=== PATIENT | male | born 1955 | race Caucasian/White ===

== ENCOUNTER 2017-08-28 13:57 | Emergency (ER) | payer OTHER ==
[2017-08-28 14:03] VITALS: RESP 18; TEMP 97.1
--- NOTE | 2017-08-28 14:17 | ED ---
General Adult HPI - General Chief complaint: Recheck/Abnormal Lab/Rx Stated complaint: Elevated BP Time Seen by Provider: 08/28/17 14:05 Source: patient, RN notes reviewed, old records reviewed Mode of arrival: ambulatory - History of Present Illness Initial comments: 61 yo male presents for evaluation of elevated blood pressure. Patient has remote history of hypertension. He has not taken medication for this in several years. He does not see a physician on a regular basis regarding his blood pressure. 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 Patient had no complaints. Denied chest pain no shortness of breath. Denies abdominal pain. Denies lower extremity swelling. Denies headache or vision changes. Denies focal weakness. Denies nausea vomiting diarrhea. Denies fever or chills. Patient is uncertain of what medication he was previously taking. - Related Data Previous Rx's Medication Instructions Recorded amLODIPine BESYLATE [Norvasc] 5 mg PO DAILY #30 tablet 08/28/17 Allergies Allergy/AdvReac Type Severity Reaction Status Date / Time No Known Allergies Allergy Verified 08/28/17 14:06 Review of Systems ROS Statement: Those systems with pertinent positive or pertinent negative responses have been documented in the HPI. ROS Other: All systems not noted in ROS Statement are negative. Past Medical History Past Medical History: Hypertension History of Any Multi-Drug Resistant Organisms: None Reported Past Surgical History: No Surgical Hx Reported Past Psychological History: No Psychological Hx Reported Smoking Status: Current every day smoker Past Alcohol Use History: Occasional Past Drug Use History: None Reported General Exam General appearance: alert, in no apparent distress Head exam: Present: atraumatic, normocephalic Eye exam: Present: normal appearance, PERRL ENT exam: Present: normal exam Neck exam: Present: normal inspection. Absent: tenderness, meningismus Respiratory exam: Present: normal lung sounds bilaterally. Absent: respiratory distress, wheezes Cardiovascular Exam: Present: regular rate, normal rhythm GI/Abdominal exam: Present: soft. Absent: distended, tenderness Extremities exam: Present: normal inspection, normal capillary refill. Absent: pedal edema Back exam: Present: normal inspection, full ROM. Absent: tenderness Neurological exam: Present: alert, oriented X3, CN II-XII intact. Absent: motor sensory deficit Psychiatric exam: Present: normal affect, normal mood Skin exam: Present: warm, dry, intact. Absent: cyanosis, diaphoretic Course Vital Signs 08/28/17 08/28/17 14:00 15:10 Temperature 97.1 F L Pulse Rate 88 75 Respiratory 18 18 Rate Blood Pressure 194/127 210/96 O2 Sat by Pulse 98 98 Oximetry EKG Findings - EKG Comments: EKG Findings:: EKG shows normal sinus rhythm with sinus arrhythmia, ventricular rate 78, PA interval 140, castration 84, QTC 43, no signs of ST segment elevation or depression. Medical Decision Making - Medical Decision Making 61-year-old male resents with asymptomatic hypertension. Patient sent from the pipe and test supervisor office. Patient does agree to laboratory testing, this is significant for elevated white blood cell count 16.1, patient has been on steroids over the past several weeks and does have a history of leukocytosis, he does not follow with a physician at this time regarding this lab abnormality. Hemoglobin stable 16.5, creatinine within normal limits. Chest x-ray shows hyperinflation consistent with COPD, cardiomegaly, and bilateral pleural based thickening. No mediastinal widening, no overt heart failure. Patient is given Norvasc in the emergency department. Blood pressure is down trending. He will be started on Norvasc and follow-up with his primary care physician. Diagnosis: asymptomatic hypertension - Lab Data Result diagrams: 08/28/17 14:58 08/28/17 14:58 Lab Results 08/28/17 08/28/17 Range/Units 14:58 14:58 WBC 16.1 H (3.8-10.6) k/uL RBC 5.54 (4.30-5.90) m/uL Hgb 16.5 (13.0-17.5) gm/dL Hct 50.8 (39.0-53.0) % MCV 91.6 (80.0-100.0) fL MCH 29.7 (25.0-35.0) pg MCHC 32.4 (31.0-37.0) g/dL RDW 15.1 (11.5-15.5) % Plt Count 253 (150-450) k/uL Neutrophils % 67 % Lymphocytes % 24 % Monocytes % 4 % Eosinophils % 2 % Basophils % 1 % Neutrophils # 10.8 H (1.3-7.7) k/uL Lymphocytes # 3.9 (1.0-4.8) k/uL Monocytes # 0.7 (0-1.0) k/uL Eosinophils # 0.4 (0-0.7) k/uL Basophils # 0.1 (0-0.2) k/uL Sodium 141 (137-145) mmol/L Potassium 4.4 (3.5-5.1) mmol/L Chloride 103 (98-107) mmol/L Carbon Dioxide 28 (22-30) mmol/L Anion Gap 10 mmol/L BUN 12 (9-20) mg/dL Creatinine 0.91 (0.66-1.25) mg/dL Est GFR (MDRD) Af Amer >60 (>60 ml/min/1.73 sqM) Est GFR (MDRD) Non-Af >60 (>60 ml/min/1.73 sqM) Glucose 93 (74-99) mg/dL Calcium 10.2 (8.4-10.2) mg/dL Magnesium 2.0 (1.6-2.3) mg/dL Total Bilirubin 0.3 (0.2-1.3) mg/dL AST 22 (17-59) U/L ALT 46 (21-72) U/L Alkaline Phosphatase 59 (38-126) U/L Total Protein 7.0 (6.3-8.2) g/dL Albumin 4.4 (3.5-5.0) g/dL Disposition Clinical Impression: Hypertension Disposition: HOME SELF-CARE Condition: Fair Instructions: Hypertension (ED) Prescriptions: amLODIPine BESYLATE [Norvasc] 5 mg PO DAILY #30 tablet Referrals: Ryan Ambrocio DO [Primary Care Provider] - 1-2 days Time of Disposition: 15:33
[2017-08-28 15:10] LABS: Basophils # (A) 0.1 k/uL (0-0.2); Basophils % (A) 1 %; Eosinophils # (A) 0.4 k/uL (0-0.7); Eosinophils % (A) 2 %; HCT 50.8 % (39.0-53.0); HGB 16.5 gm/dL (13.0-17.5); Lymphocytes # (A) 3.9 k/uL (1.0-4.8); Lymphocytes % (A) 24 %; MCH 29.7 pg (25.0-35.0); MCHC 32.4 g/dL (31.0-37.0); MCV 91.6 fL (80.0-100.0); Mean Platelet Volume 8.3; Monocytes # (A) 0.7 k/uL (0-1.0); Monocytes % (A) 4 %; Neutrophils # (A) 10.8 k/uL (1.3-7.7); Neutrophils % (A) 67 %; Platelet Count 253 k/uL (150-450); RBC 5.54 m/uL (4.30-5.90); RDW 15.1 % (11.5-15.5); WBC 16.1 k/uL (3.8-10.6)
[2017-08-28] MEDS ORDERED: amLODIPine 5 MG TAB PO STA (15:10)
--- NOTE | 2017-08-28 15:11 | XR ---
EXAMINATION TYPE: XR chest 2V DATE OF EXAM: 08/28/2017 COMPARISON: 06/03/2011 TECHNIQUE: PA and lateral views submitted. HISTORY: Wrist pain FINDINGS: The lungs are clear and there is no pneumothorax, pleural effusion, or focal pneumonia. Hyperinflat ion suggests COPD and there is cardiomegaly. Bilateral pleural-based thickening with no evidence of o vert failure. IMPRESSION: 1. COPD, cardiomegaly and bilateral pleural-based
[2017-08-28 15:22] LABS: ALT 46 U/L (21-72); AST 22 U/L (17-59); Albumin 4.4 g/dL (3.5-5.0); Alkaline Phosphatase 59 U/L (38-126); Anion Gap 10 mmol/L; Blood Urea Nitrogen 12 mg/dL (9-20); Calcium 10.2 mg/dL (8.4-10.2); Carbon Dioxide 28 mmol/L (22-30); Chloride 103 mmol/L (98-107); Glucose 93 mg/dL (74-99); Potassium 4.4 mmol/L (3.5-5.1); Sodium 141 mmol/L (137-145); Total Bilirubin 0.3 mg/dL (0.2-1.3)
[2017-08-28 15:38] LABS: Partial Thromboplastin Time 24.8 sec (22.0-30.0); Prothrombin Time 10.2 sec (9.0-12.0)
[2017-08-28 15:40] LABS: Creatine Kinase 68 U/L (55-170)
[2017-08-28 15:46] VITALS: BP 206/107; PULSE 71
[2017-08-28 15:52] LABS: Creatine Kinase MB 0.6 ng/mL (0.0-2.4); Troponin I <0.012 ng/mL (0.000-0.034)
== END 2017-08-28 16:03 | disposition home or self-care (01) ==
LOC: EC 13:57
DX: I10 Essential (primary) hypertension (principal); D72.829 Elevated white blood cell count, unspecified; F17.200 Nicotine dependence, unspecified, uncomplicated; Z79.899 Other long term (current) drug therapy
CPT/HCPCS: 36415; 71046; 80053; 82550; 82553; 83735; 83880; 84484; 85025; 85610; 85730; 93005; 99284

== ENCOUNTER 2024-08-04 20:45 | Inpatient (IN) | payer MEDICARE, OTHER ==
--- NOTE | 2024-08-04 21:25 | ED ---
SOB HPI - General Chief Complaint: Shortness of Breath Stated Complaint: ANGEL Time Seen by Provider: 08/04/24 21:09 Source: patient Mode of arrival: wheelchair Limitations: no limitations - History of Present Illness Initial Comments: Patient is a 68-year-old man with history of COPD who presents with complaint of worsening of shortness of breath. The patient states that he was recently started on inhalers but they were only giving small amount of relief. He had been seen in the clinic and in fact had home nebulizer delivered today. The patient states that when he uses the inhaled medication he does briefly feel better but the shortness of breath returns. He is also having bilateral leg edema for months. He has orthopnea. Patient has not noted fever or chills. There is occasional cough with little bit of clear sputum. No change in urina tion or bowel movements. MD Complaint: shortness of breath -: days(s) Severity scale (1-10): 0 Consistency: constant Improves With: bronchodilators, upright position Worsens With: lying flat, exertion Known History Of: COPD Treatments Prior to Arrival: bronchodilator - Related Data Home Oxygen Therapy: No Home Medications Medication Instructions Recorded Confirmed Albuterol Inhaler [Ventolin Hfa 2 puff INHALATION RT-Q4H PRN 08/05/24 08/05/24 Inhaler] Fluticasone/Umeclidin/Vilanter 1 puff INHALATION RT-DAILY 08/05/24 08/05/24 [Trelegy Ellipta 100-62.5-25] Ipratropium-Albuterol Nebulize 3 ml INHALATION RT-QID PRN 08/05/24 08/05/24 [Duoneb 0.5 mg-3 mg/3 ml Soln] Previous Rx's Medication Instructions Recorded Aspirin 81 mg PO DAILY #30 tab 08/09/24 Atorvastatin [Lipitor] 40 mg PO HS #30 tab 08/09/24 Bumetanide [BUMEX] 1 mg PO DAILY #30 tab 08/09/24 Dapagliflozin Propanediol [Farxiga] 10 mg PO DAILY #30 tab 08/09/24 Metoprolol Succinate (ER) [Toprol 50 mg PO DAILY #30 tab 08/09/24 XL] Nitroglycerin Sl Tabs [Nitrostat] 0.4 mg SUBLINGUAL Q5M PRN #10 tab 08/09/24 Rivaroxaban [Xarelto] 2.5 mg PO BID #60 tab 08/09/24 Sacubitril/Valsartan [Entresto 24 2 each PO BID #60 tab 08/09/24 mg-26 mg Tablet] Spironolactone [Aldactone] 25 mg PO DAILY #30 tab 08/09/24 Allergies Allergy/AdvReac Type Severity Reaction Status Date / Time No Known Allergies Allergy Verified 08/05/24 07:47 Review of Systems ROS Statement: Those systems with pertinent positive or pertinent negative responses have been documented in the HPI. ROS Other: All systems not noted in ROS Statement are negative. Constitutional: Denies: fever, chills Respiratory: Reports: cough, dyspnea, wheezes. Denies: hemoptysis Cardiovascular: Reports: orthopnea, edema. Denies: chest pain, palpitations, syncope Gastrointestinal: Denies: abdominal pain, nausea, vomiting, diarrhea Genitourinary: Denies: dysuria, hematuria Musculoskeletal: Denies: back pain Skin: Denies: rash Neurological: Denies: headache, weakness, numbness Past Medical History Past Medical History: Hypertension History of Any Multi-Drug Resistant Organisms: None Reported Past Surgical History: No Surgical Hx Reported Past Psychological History: No Psychological Hx Reported Smoking Status: Current every day smoker Past Alcohol Use History: Occasional Past Drug Use History: None Reported General Exam Limitations: no limitations General appearance: alert, in no apparent distress Head exam: Present: atraumatic, normocephalic Eye exam: Present: normal appearance. Absent: scleral icterus, conjunctival injection ENT exam: Present: normal oropharynx Neck exam: Present: normal inspection Respiratory exam: Present: respiratory distress (Tachypnea), wheezes, rales. Absent: rhonchi, stridor, accessory muscle use, decreased breath sounds Cardiovascular Exam: Present: normal rhythm, tachycardia, gallop GI/Abdominal exam: Present: soft. Absent: distended, tenderness, guarding, rebound, rigid, mass Extremities exam: Present: normal capillary refill, pedal edema. Absent: calf tenderness Back exam: Present: normal inspection. Absent: CVA tenderness (R), CVA tenderness (L) Neurological exam: Present: alert Skin exam: Present: warm, dry, intact, normal color. Absent: rash Course Vital Signs 08/04/24 08/04/24 08/04/24 20:47 21:23 22:27 Temperature 97.9 F 97.6 F 98.4 F Pulse Rate 119 H 105 H 107 H Respiratory 24 22 Rate Blood Pressure 154/85 137/82 131/87 O2 Sat by Pulse 95 97 96 Oximetry 08/05/24 08/05/24 08/05/24 00:30 02:00 05:45 Temperature 97.7 F Pulse Rate 108 H 110 H 109 H Respiratory 25 H 26 H 24 Rate Blood Pressure 122/99 O2 Sat by Pulse 95 96 Oximetry 08/05/24 08/05/24 08/05/24 07:17 08:24 12:55 Temperature Pulse Rate 98 99 Respiratory 24 22 22 Rate Blood Pressure 140/97 142/100 O2 Sat by Pulse 98 98 Oximetry 08/05/24 08/05/24 08/05/24 15:03 18:33 18:44 Temperature Pulse Rate 107 H 102 H 108 H Respiratory 22 Rate Blood Pressure 154/87 O2 Sat by Pulse 97 Oximetry 08/05/24 20:00 Temperature 97.5 F L Pulse Rate 100 Respiratory 18 Rate Blood Pressure 160/97 O2 Sat by Pulse 97 Oximetry Medical Decision Making - Medical Decision Making Patient had chest x-ray that I interpreted as showing density at the right base consistent with right-sided pleural effusion. No pneumothorax. The patient had CT scan of the chest that I interpreted as showing right pleural effusion. Was pt. sent in by a medical professional or institution ([facility], MEDICAL LAB SPECIALIST, urgent care, hospital, or skilled nursing...) When possible be specific @ -[No] Did you speak to anyone other than the patient for history (EMS, parent, family, police, friend...)? What history was obtained from this source @ -[No] Did you review nursing and triage notes (agree or disagree)? Why? @ -[I reviewed and agree with nursing and triage notes] Were old charts reviewed (outside hosp., previous admission, EMS record, old EKG, old radiological studies, urgent care reports/EKG's, skilled nursing records)? Report findings @ -[No old charts were reviewed] Differential Diagnosis (chest pain, altered mental status, abdominal pain women, abdominal pain men, vaginal bleeding, weakness, fever, dyspnea, syncope, headache, dizziness, GI bleed, back pain, seizure, CVA, palpatations, mental health, musculoskeletal)? @ -[Differential Dyspnea: Coronary syndrome, arrhythmia, tamponade, asthma, COPD, pulmonary embolism, pneumonia, pneumothorax, pulmonary effusion, anaphylaxis, diabetic ketoacidosis, flailed chest, pulmonary contusion, diaphragmatic rupture, anemia, neuromu scular, this is not meant to be an all-inclusive list. EKG interpreted by me (3pts min.). @ -[I interpreted as above] X-rays interpreted by me (1pt min.). @ -[I interpreted as above CT interpreted by me (1pt min.). @ -[I interpreted as above U/S interpreted by me (1pt. min.). @ -[None done] What testing was considered but not performed or refused? (CT, X-rays, U/S, labs)? Why? @ -[None] What meds were considered but not given or refused? Why? @ -[None] Did you discuss the management of the patient with other professionals (professionals i.e. , PA, MEDICAL LAB SPECIALIST, lab, RT, psych nurse, social sciences chair, third loader, teacher, giving officer, continuous pillowcase cutter)? Give summary @ -Case discussed with admitting physician and treatment recommendations incorporated Was smoking cessation discussed for >3mins.? @ -[No] Was critical care preformed (if so, how long)? @ -[Yes, 30 minutes Were there social determinants of health that impacted care today? How? (Homelessness, low income, unemployed, alcoholism, drug addiction, transportation, low edu. Level, literacy, decrease access to med. care, longterm, rehab)? @ -[No] Was there de-escalation of care discussed even if they declined (Discuss DNR or withdrawal of care, Hospice)? DNR status @ -[No] What co-morbidities impacted this encounter? (DM, HTN, Smoking, COPD, CAD, Cancer, CVA, ARF, Chemo, Hep., AIDS, mental health diagnosis, sleep apnea, morbid obesity)? @ -[None] Was patient admitted / discharged? Hospital course, mention meds given and route, prescriptions, significant lab abnormalities, going to OR and other pertinent info. @ -[Patient is 68-year-old man presenting with dyspnea. Exam and workup consistent with congestive heart failure. The patient will be admitted to have cardiology consultation as well as further studies. The patient also found to have right pleural effusion and will have pulmonology evaluation for possible thoracentesis. Undiagnosed new problem with uncertain prognosis? @ -[No] Drug Therapy requiring intensive monitoring for toxicity (Heparin, Nitro, Insulin, Cardizem)? @ -[No] Were any procedures done? @ -[No] Diagnosis/symptom? @ -[Acute congestive heart failure Right pleural effusion Anasarca Acute, or Chronic, or Acute on Chronic? @ -[Acute complicated by dyspnea Uncomplicated (without systemic symptoms) or Complicated (systemic symptoms)? @ -[default] Side effects of treatment? @ -[No] Exacerbation, Progression, or Severe Exacerbation? @ -[No] Poses a threat to life or bodily function? How? (Chest pain, [place], [place], pneumonia, PE, COPD, DKA, ARF, appy, cholecystitis, CVA, Diverticulitis, Homicidal, Suicidal, threat to staff... and all critical care pts) @ -[Yes All treatments are based on ideal body weight as in ED triage - Lab Data Result diagrams: 08/09/24 06:41 08/09/24 06:41 Lab Results 08/04/24 08/04/24 08/04/24 Range/Units 21:28 21:28 21:28 WBC 14.4 H (3.8-10.6) k/uL RBC 5.51 (4.30-5.90) m/uL Hgb 16.3 (13.0-17.5) gm/dL Hct 52.8 (39.0-53.0) % MCV 95.7 (80.0-100.0) fL MCH 29.6 (25.0-35.0) pg MCHC 30.9 L (31.0-37.0) g/dL RDW 15.0 (11.5-15.5) % Plt Count 239 (150-450) k/uL MPV 8.1 Neutrophils % 78 % Lymphocytes % 14 % Monocytes % 6 % Eosinophils % 1 % Basophils % 0 % Neutrophils # 11.2 H (1.3-7.7) k/uL Lymphocytes # 2.0 (1.0-4.8) k/uL Monocytes # 0.8 (0-1.0) k/uL Eosinophils # 0.2 (0-0.7) k/uL Basophils # 0.1 (0-0.2) k/uL Hypochromasia Moderate PT 13.0 H (10.0-12.5) sec INR 1.2 H (<1.2) APTT 23.3 (22.0-30.0) sec D-Dimer 1.52 H (<0.60) mg/L FEU Sodium 139 (137-145) mmol/L Potassium 4.9 (3.5-5.1) mmol/L Chloride 107 (98-107) mmol/L Carbon Dioxide 20 L (22-30) mmol/L Anion Gap 12 mmol/L BUN 25 H (9-20) mg/dL Creatinine 1.15 (0.66-1.25) mg/dL Est GFR (CKD-EPI)AfAm 76 (>60 ml/min/1.73 sqM) Est GFR (CKD-EPI)NonAf 66 (>60 ml/min/1.73 sqM) Glucose 114 H (74-99) mg/dL Lactic Ac Sepsis Rflx Plasma Lactic Acid Francisco (0.7-2.0) mmol/L Calcium 10.3 H (8.4-10.2) mg/dL Magnesium 2.1 (1.6-2.3) mg/dL Total Bilirubin 1.3 (0.2-1.3) mg/dL AST 66 H (17-59) U/L ALT 67 H (4-49) U/L Alkaline Phosphatase 83 (38-126) U/L Troponin I (0.000-0.034) ng/mL NT-Pro-B Natriuret Pep 9740 pg/mL Total Protein 6.9 (6.3-8.2) g/dL Albumin 4.5 (3.5-5.0) g/dL Influenza Type A (PCR) (Not Detectd) Influenza Type B (PCR) (Not Detectd) RSV (PCR) (Not Detectd) SARS-CoV-2 (PCR) (Not Detectd) 08/04/24 08/04/24 08/04/24 Range/Units 21:28 21:28 22:08 WBC (3.8-10.6) k/uL RBC (4.30-5.90) m/uL Hgb (13.0-17.5) gm/dL Hct (39.0-53.0) % MCV (80.0-100.0) fL MCH (25.0-35.0) pg MCHC (31.0-37.0) g/dL RDW (11.5-15.5) % Plt Count (150-450) k/uL MPV Neutrophils % % Lymphocytes % % Monocytes % % Eosinophils % % Basophils % % Neutrophils # (1.3-7.7) k/uL Lymphocytes # (1.0-4.8) k/uL Monocytes # (0-1.0) k/uL Eosinophils # (0-0.7) k/uL Basophils # (0-0.2) k/uL Hypochromasia PT (10.0-12.5) sec INR (<1.2) APTT (22.0-30.0) sec D-Dimer (<0.60) mg/L FEU Sodium (137-145) mmol/L Potassium (3.5-5.1) mmol/L Chloride (98-107) mmol/L Carbon Dioxide (22-30) mmol/L Anion Gap mmol/L BUN (9-20) mg/dL Creatinine (0.66-1.25) mg/dL Est GFR (CKD-EPI)AfAm (>60 ml/min/1.73 sqM) Est GFR (CKD-EPI)NonAf (>60 ml/min/1.73 sqM) Glucose (74-99) mg/dL Lactic Ac Sepsis Rflx Y Plasma Lactic Acid Francisco 2.2 H* (0.7-2.0) mmol/L Calcium (8.4-10.2) mg/dL Magnesium (1.6-2.3) mg/dL Total Bilirubin (0.2-1.3) mg/dL AST (17-59) U/L ALT (4-49) U/L Alkaline Phosphatase (38-126) U/L Troponin I 0.077 H* (0.000-0.034) ng/mL NT-Pro-B Natriuret Pep pg/mL Total Protein (6.3-8.2) g/dL Albumin (3.5-5.0) g/dL Influenza Type A (PCR) (Not Detectd) Influenza Type B (PCR) (Not Detectd) RSV (PCR) (Not Detectd) SARS-CoV-2 (PCR) (Not Detectd) 08/04/24 08/05/24 Range/Units 22:14 00:15 WBC (3.8-10.6) k/uL RBC (4.30-5.90) m/uL Hgb (13.0-17.5) gm/dL Hct (39.0-53.0) % MCV (80.0-100.0) fL MCH (25.0-35.0) pg MCHC (31.0-37.0) g/dL RDW (11.5-15.5) % Plt Count (150-450) k/uL MPV Neutrophils % % Lymphocytes % % Monocytes % % Eosinophils % % Basophils % % Neutrophils # (1.3-7.7) k/uL Lymphocytes # (1.0-4.8) k/uL Monocytes # (0-1.0) k/uL Eosinophils # (0-0.7) k/uL Basophils # (0-0.2) k/uL Hypochromasia PT (10.0-12.5) sec INR (<1.2) APTT (22.0-30.0) sec D-Dimer (<0.60) mg/L FEU Sodium (137-145) mmol/L Potassium (3.5-5.1) mmol/L Chloride (98-107) mmol/L Carbon Dioxide (22-30) mmol/L Anion Gap mmol/L BUN (9-20) mg/dL Creatinine (0.66-1.25) mg/dL Est GFR (CKD-EPI)AfAm (>60 ml/min/1.73 sqM) Est GFR (CKD-EPI)NonAf (>60 ml/min/1.73 sqM) Glucose (74-99) mg/dL Lactic Ac Sepsis Rflx Plasma Lactic Acid Francisco 1.8 (0.7-2.0) mmol/L Calcium (8.4-10.2) mg/dL Magnesium (1.6-2.3) mg/dL Total Bilirubin (0.2-1.3) mg/dL AST (17-59) U/L ALT (4-49) U/L Alkaline Phosphatase (38-126) U/L Troponin I (0.000-0.034) ng/mL NT-Pro-B Natriuret Pep pg/mL Total Protein (6.3-8.2) g/dL Albumin (3.5-5.0) g/dL Influenza Type A (PCR) Not Detected (Not Detectd) Influenza Type B (PCR) Not Detected (Not Detectd) RSV (PCR) Not Detected (Not Detectd) SARS-CoV-2 (PCR) Not Detected (Not Detectd) - EKG Data -: EKG Interpreted by Me EKG shows normal: sinus rhythm (With PVCs), axis (Borderline right axis deviation), intervals (Normal), ST-T waves ( lateral T inversions) Rate: tachycardia (Rate 116 bpm) Disposition Clinical Impression: Congestive heart failure, Pleural effusion, right, Anasarca, Elevated troponin Disposition: ADMITTED IP TO THIS [facility] Condition: Serious Is patient prescribed a controlled substance at d/c from ED?: No
[2024-08-04] MEDS: FUROSEMIDE 10 MG/ML 4 ML VIAL IV STA (21:29)
[2024-08-04 21:37] LABS: Basophils # (A) 0.1 k/uL (0-0.2); Basophils % (A) 0 %; Eosinophils # (A) 0.2 k/uL (0-0.7); Eosinophils % (A) 1 %; HCT 52.8 % (39.0-53.0); HGB 16.3 gm/dL (13.0-17.5); Hypochromasia Moderate; Lymphocytes % (A) 14 %; MCH 29.6 pg (25.0-35.0); MCHC 30.9 g/dL (31.0-37.0); MCV 95.7 fL (80.0-100.0); Mean Platelet Volume 8.1; Monocytes # (A) 0.8 k/uL (0-1.0); Monocytes % (A) 6 %; Neutrophils # (A) 11.2 k/uL (1.3-7.7); Neutrophils % (A) 78 %; Platelet Count 239 k/uL (150-450); RBC 5.51 m/uL (4.30-5.90); WBC 14.4 k/uL (3.8-10.6)
[2024-08-04 21:48] LABS: ALT 67 U/L (4-49); AST 66 U/L (17-59); African American GFR (CKD) 76 (>60 ml/min/1.73 sqM); Albumin 4.5 g/dL (3.5-5.0); Alkaline Phosphatase 83 U/L (38-126); Anion Gap 12 mmol/L; Blood Urea Nitrogen 25 mg/dL (9-20); Calcium 10.3 mg/dL (8.4-10.2); Carbon Dioxide 20 mmol/L (22-30); Chloride 107 mmol/L (98-107); Glucose 114 mg/dL (74-99); Magnesium 2.1 mg/dL (1.6-2.3); Non-African American GFR(CKD) 66 (>60 ml/min/1.73 sqM); Potassium 4.9 mmol/L (3.5-5.1); Sodium 139 mmol/L (137-145); Total Bilirubin 1.3 mg/dL (0.2-1.3); Total Protein 6.9 g/dL (6.3-8.2)
--- NOTE | 2024-08-04 21:48 | XR ---
EXAMINATION TYPE: XR chest 2V DATE OF EXAM: 08/04/2024 9:41 PM CLINICAL INDICATION:Male, 68 years old with history of difficulty breathing; [facility] COMPARISON: Chest radiograph 08/28/2017 TECHNIQUE: XR chest 2V Frontal and lateral views of the chest. FINDINGS: Lungs/Pleura: There is blunting of the right costophrenic sulcus. No pneumothorax. Pulmonary vascularity: Unremarkable. Heart/mediastinum: Cardiomediastinal silhouette is unremarkable. Musculoskeletal: No acute osseous pathology. IMPRESSION: 1. Small right pleural effusion. 2. Nonspecific elevation of the right hemidiaphragm [facility] Ronnie Goel, , 08/04/2024 9:46 PM
[2024-08-04 21:55] LABS: NT-Pro-B-Type Natriuretic Pept 9740 pg/mL
[2024-08-04 22:13] LABS: INR 1.2 (<1.2); Partial Thromboplastin Time 23.3 sec (22.0-30.0)
[2024-08-04] MEDS: ASPIRIN 81 MG PO STA (22:19)
[2024-08-04] MEDS: NITROGLYCERIN OINT 1 INCH/GM PACKET TOPICAL STA (22:22)
--- NOTE | 2024-08-04 23:57 | CT ---
EXAM: CT Angiography Chest With Intravenous Contrast CLINICAL HISTORY: dyspnea, possible PE TECHNIQUE: Axial computed tomographic angiography images of the chest with intravenous contrast. CTDI is 32.4 mGy and DLP is 690.3 mGy-cm. This CT exam was performed using one or more of the following dose reduction techniques: automated exposure control, adjustment of the mA and/or kV according to patient size, and/or use of iterative reconstruction technique. MIP reconstructed images were created and reviewed. Coronal and sagittal reformatted images were created and reviewed. 866 images COMPARISON: Chest radiograph from today FINDINGS: Artifacts: Motion artifact decreases the sensitivity of this exam. Pulmonary arteries: No pulmonary embolus in the main and lobar pulmonary arteries. Segmental pulmonary arteries are suboptimally evaluated. Aorta: Small amount of atherosclerotic calcifications. No thoracic aortic aneurysm. Lungs: Small amount of right compressive atelectasis. Suspect mild pulmonary edema. No mass. Pleural space: Large right pleural effusion. Small left pleural effusion. No pneumothorax. Heart: Moderate cardiomegaly. No significant pericardial effusion. No evidence of RV dysfunction. Bones/joints: No acute findings. Soft tissues: Moderate anasarca. Lymph nodes: Unremarkable. No enlarged lymph nodes. Gallbladder and bile ducts: Cholecystectomy clips. Kidneys and ureters: Likely left renal cysts. 2 are hyperdense and exophytic measuring the bowel 40-50 HU and up to 17 mm in maximal diameter, likely hemorrhagic or proteinaceous cysts. Stomach and bowel: Stomach is collapsed, poorly evaluated. Intraperitoneal space: Small ascites. IMPRESSION: 1. No pulmonary embolus in the main and lobar pulmonary arteries. No aortic aneurysm or dissection. 2. Large right pleural effusion. Small left pleural effusion. 3. Moderate anasarca. 4. Small ascites.
[2024-08-05] MEDS: FUROSEMIDE 10 MG/ML 4 ML VIAL IV SCH ×2 (02:08→21:54)
[2024-08-05] MEDS: amLODIPine 5 MG TAB PO SCH (08:23)
[2024-08-05] MEDS ORDERED: IPRATROPIUM-ALBUTEROL 3 ML NEB INHALATION PRN (11:05)
[2024-08-05] MEDS: METOPROLOL SUCCINATE (ER) 25 MG TAB.ER.24H PO SCH (11:57)
[2024-08-05] MEDS: LOSARTAN 25 MG TAB PO SCH (12:52)
--- NOTE | 2024-08-05 14:17 | P.CRDCN ---
History of Present Illness History of present illness: HISTORY OF PRESENT ILLNESS: This is a 68-year-old male with a past medical history significant for peripheral arterial disease and COPD. Patient does not follow with a target developer. We have been asked to see the patient in consultation for CHF. Patient examined at the bedside. Patient presented to the hospital with a chief complaint of increased lower extremity edema. Patient also reports having mild shortness of breath. He denies any chest pain or pressure. Denies any dizziness or lightheadedness. Patient denies any known cardiac history. Patient appears somewhat restless during examination and states he is eager to be discharged home. DIAGNOSTICS: - EKG reveals sinus tachycardia with nonspecific ST-T wave changes. T wave inversions inferiorly. - CTA: negative for pulmonary embolism. Large right pleural effusion. Small left effusion. Generalized anasarca. Coronary artery calcifications. - Laboratory data: WBC 14.4. Hemoglobin 16.3. Platelet count 239. D-dimer 1.52. Sodium 139. Potassium 4.9. BUN 25. Creatinine 1.15. Troponin 0.077. 0.098. 0.093. - Current home cardiac medications include none - No previous echocardiogram, stress test, or cardiac catheterization available in EMR for review REVIEW OF SYSTEMS: At the time of my exam: CONSTITUTIONAL: Denies fever or chills. HEENT: Denies blurred vision, vision changes, or eye pain. Denies hemoptysis CARDIOVASCULAR: Denies chest pain. Denies orthopnea. Denies PND. Denies palpitations RESPIRATORY: Denies shortness of breath. GASTROINTESTINAL: Denies abdominal pain. Denies nausea or vomiting. HEMATOLOGIC: Denies bleeding disorders. GENITOURINARY: Denies any blood in urine. SKIN: Denies pruitis. Denies rash. PHYSICAL EXAM: VITAL SIGNS: Reviewed. GENERAL: Well-developed in no acute distress. HEENT: Head is normocephalic. Pupils are equal, round. Sclerae anicteric. Mucous membranes of the mouth are moist. Neck supple. No JVD or thyromegaly LUNGS: Respirations even and unlabored. Lungs with bibasilar crackles and rhonchi. HEART: Mildly tachycardic. Regular rate and rhythm. S1 and S2 heard. ABDOMEN: Soft. Nondistended. Nontender. EXTREMITIES: Normal range of motion. No clubbing or cyanosis. Peripheral pulses intact-decreased in the legs. Bilateral lower extremity edema NEUROLOGIC: Awake and alert. Oriented x 3. ASSESSMENT: Shortness of breath Acute heart failure, type unknown, echo pending Elevated troponins, likely type II [place] secondary to oxygen supply and demand m ismatch, cannot rule out underlying CAD Large right pleural effusion Small left pleural effusion Mildly elevated LFTs Elevated lactic acid Coronary artery calcifications per CTA History of PAD Obesity, BMI 33.5 History of COPD Nicotine dependence PLAN: Obtain 2D echo to assess cardiac structure and function Obtain lower extremity arterial Doppler due to decreased pulses in the lower extremities Add aspirin 81 mg daily Add atorvastatin 40 mg at night Add losartan 25 mg daily Add metoprolol succinate 25 mg daily Continue IV Lasix 40 mg every 12 hours Daily weights, accurate intake and output, and monitoring of kidney function Eventual addition of Farxiga Recommend cardiac catheterization with Dr. Chacon when patient is medically stable Further recommendations pending patient course Nurse practitioner note has been reviewed by physician. Signing provider agrees with the documented findings, assessment, and plan of care documented by SOCIAL SCIENCES LECTURER as a scribe. Past Medical History Past Medical History: Hypertension History of Any Multi-Drug Resistant Organisms: None Reported Past Surgical History: No Surgical Hx Reported Past Psychological History: No Psychological Hx Reported Smoking Status: Current every day smoker Past Alcohol Use History: Occasional Past Drug Use History: None Reported Medications and Allergies Home Medications Medication Instructions Recorded Confirmed Type Albuterol Inhaler [Ventolin Hfa 2 puff INHALATION RT-Q4H PRN 08/05/24 08/05/24 History Inhaler] Fluticasone/Umeclidin/Vilanter 1 puff INHALATION RT-DAILY 08/05/24 08/05/24 History [Trelegy Ellipta 100-62.5-25] Ipratropium-Albuterol Nebulize 3 ml INHALATION RT-QID PRN 08/05/24 08/05/24 History [Duoneb 0.5 mg-3 mg/3 ml Soln] Allergies Allergy/AdvReac Type Severity Reaction Status Date / Time No Known Allergies Allergy Verified 08/05/24 07:47 Physical Exam Vitals: Vital Signs Temp Pulse Resp BP Pulse Ox 08/05/24 07:17 24 08/05/24 05:45 97.7 F 109 H 24 122/99 96 08/05/24 02:00 110 H 26 H 95 08/05/24 00:30 108 H 25 H 08/04/24 22:27 98.4 F 107 H 131/87 96 08/04/24 21:23 97.6 F 105 H 22 137/82 97 08/04/24 20:47 97.9 F 119 H 24 154/85 95 Intake and Output 08/04/24 08/05/24 08/05/24 22:59 06:59 14:59 Output Total 350 1450 300 Balance -350 -1450 -300 Output: Urine 350 1450 300 Other: Weight 99.79 kg Results 08/04/24 21:28 08/04/24 21:28 Cardiac Enzymes 08/04/24 08/04/24 08/05/24 Range/Units 21:28 21:28 02:01 AST 66 H (17-59) U/L Troponin I 0.077 H* 0.098 H* (0.000-0.034) ng/mL 08/05/24 Range/Units 06:04 AST (17-59) U/L Troponin I 0.093 H* (0.000-0.034) ng/mL Coagulation 08/04/24 Range/Units 21:28 PT 13.0 H (10.0-12.5) sec APTT 23.3 (22.0-30.0) sec CBC 08/04/24 Range/Units 21:28 WBC 14.4 H (3.8-10.6) k/uL RBC 5.51 (4.30-5.90) m/uL Hgb 16.3 (13.0-17.5) gm/dL Hct 52.8 (39.0-53.0) % Plt Count 239 (150-450) k/uL Comprehensive Metabolic Panel 08/04/24 Range/Units 21:28 Sodium 139 (137-145) mmol/L Potassium 4.9 (3.5-5.1) mmol/L Chloride 107 (98-107) mmol/L Carbon Dioxide 20 L (22-30) mmol/L BUN 25 H (9-20) mg/dL Creatinine 1.15 (0.66-1.25) mg/dL Glucose 114 H (74-99) mg/dL Calcium 10.3 H (8.4-10.2) mg/dL AST 66 H (17-59) U/L ALT 67 H (4-49) U/L Alkaline Phosphatase 83 (38-126) U/L Total Protein 6.9 (6.3-8.2) g/dL Albumin 4.5 (3.5-5.0) g/dL Current Medications Generic Name Dose Route Start Last Admin Trade Name Freq PRN Reason Stop Dose Admin Amlodipine Besylate 5 mg 08/05/24 09:00 Amlodipine 5 Mg Tab PO DAILY GRADY Furosemide 40 mg 08/05/24 02:00 08/05/24 02:08 Furosemide 10 Mg/Ml 4 Ml Vial IV Not Given Q12H GRADY Sodium Chloride 10 ml 08/05/24 09:00 Sodium Chloride 0.9% Flush 10 Ml Syringe IV BID GRADY Intake and Output 08/04/24 08/05/24 08/05/24 22:59 06:59 14:59 Output Total 350 1450 300 Balance -350 -1450 -300 Output: Urine 350 1450 300 Other: Weight 99.79 kg 08/04/24 21:28 08/04/24 21:28
[2024-08-05 15:49] LABS: Chol/HDL Ratio 4.82 Ratio; LDL Cholesterol,Calculated 82.8 mg/dL (0.0-131.0); VLDL Calculation 13.94 mg/dL (5.00-40.00)
--- NOTE | 2024-08-05 16:19 | US ---
EXAMINATION TYPE: US arterial LE multi level DATE OF EXAM: 08/05/2024 4:13 PM COMPARISONS: None. CLINICAL INDICATION: Male, 68 years old with history of decreased pulses,hx of PAD; PAD TECHNIQUE: Systolic pressures were taken of the upper and lower extremity arteries with ankle-brachia l indices and toe brachial indices calculated bilaterally. History of: Smoker: Yes Hypertension: No Diabetic: No Hyperlipidemia: Yes TIA/CVA: No Previous Vascular Surgery: No CAD: No [place]: No Vascular Ulcers: No Claudication: Bilat Gangrene: No FINDINGS: Brachial Artery systolic pressure: Right: def due to IV Left: 157 Posterior Tibial artery systolic pressure: Right: 130 Left: 106 Dorsalis Pedis artery systolic pressure: Right: 117 Left: 108 Toe artery systolic pressure: Right: n/a Left: n/a Ankle-Brachial Indices: Right: 0.83 Left: 0.69 (Vessel hardening > 1.4; Normal 0.9 - 1.4, Moderate 0.7 - 0.9, Severe 0.5-0.7) IMPRESSION: Moderate right and severe left peripheral vascular disease by ankle brachial indices [facility], , 08/05/2024 4:17 PM
--- NOTE | 2024-08-05 16:32 | US ---
EXAMINATION TYPE: US chest DATE OF EXAM: 08/05/2024 COMPARISON: NONE CLINICAL INDICATION: Male, 68 years old with history of Pleural effusions; known pleural effusion TECHNIQUE: Grayscale imaging of the chest. Targeted ultrasound of the posterior lower Right FINDINGS: EXAM MEASUREMENTS: Right Pleural Effusion pocket size: 6.5 cm Right skin surface to fluid distance: 5.0 cm Pulmonologists are able to review the images in the patient?s EMR. IMPRESSIONS: Moderate right pleural effusion. [facility], , 08/05/2024 4:29 PM
[2024-08-05] MEDS ORDERED: NON FORMULARY DRUG (Albuterol Inhaler 90 MCG Puff) INHALATION PRN (16:42)
[2024-08-05] MEDS: IPRATROPIUM-ALBUTEROL 3 ML NEB INHALATION SCH (18:32)
[2024-08-05] MEDS ORDERED: BUDESONIDE 0.25 MG/2 ML NEBU INHALATION SCH (20:00)
[2024-08-05] MEDS: ATORVASTATIN 40 MG TAB PO SCH (21:54)
[2024-08-06] MEDS: ACETAMINOPHEN TAB 325 MG TAB PO PRN (00:26)
--- NOTE | 2024-08-06 00:37 | HP ---
HISTORY AND PHYSICAL CHIEF COMPLAINT: Shortness of breath. HISTORY OF PRESENT ILLNESS: This 68-year-old gentleman with a past medical history of COPD, who was recently started on inhalers and nebulizers without any machine, according to him because of increasing shortness of breath. The patient came to [facility]. The patient had features of CHF and right pleural effusion also. There is no history of any fever, rigors, or chills at this time. PAST MEDICAL HISTORY: Reviewed include hypertension. The rest of the history and chart is also reviewed. HOME MEDICATIONS: Reviewed include DuoNeb. Rest of the medications are reviewed. ALLERGIES: None. FAMILY HISTORY: No history of heart disease or strokes in the family. SOCIAL HISTORY: Smoking. REVIEW OF SYSTEMS: A 14-point review of systems is negative except as mentioned earlier. PHYSICAL EXAMINATION: VITAL SIGNS: Pulse is 98, blood pressure 140/90, and respirations 22. HEENT: Conjunctivae normal. NECK: No JVD. CARDIOVASCULAR: S1, S2. RESPIRATIONS: Breath sounds diminished at the bases. Bilateral scattered rhonchi and crackles. ABDOMEN: Soft and nontender. LEGS: No edema. NERVOUS SYSTEM: Nonfocal. LABORATORY DATA: WBC 14.4. Rest of the labs are noted. Lactic acid 2.2. Troponins noted. ASSESSMENT: 1. Shortness of breath, possible multifactorial with chronic obstructive pulmonary disease acute exacerbation and also congestive heart failure with acute exacerbation. 2. Troponin elevated up to 0.098. Possible acute tqi-[id number] elevation myocardial infarction. 3. Right pleural effusion of undetermined origin. 4. Hypertension. 5. Multiple complex medical issues. RECOMMENDATIONS AND DISCUSSION: This is a 68-year-old gentleman, who presented with multiple complex medical issues. We will monitor the patient closely. Continue current medications and continue symptomatic treatment, otherwise. At this time, bronchodilators and diuretics. Cardiology and Pulmonology consultations. Guarded prognosis because of multiple complex medical issues. I would also recommend IV steroids. Further recommendations to follow. See orders for details. Prognosis guarded. MMODL / IJN: [id number] /
[2024-08-06] MEDS: ASPIRIN 81 MG PO SCH (08:14)
[2024-08-06] MEDS: SYMBICORT 80-4.5 MCG INHALER INHALATION SCH (09:43)
[2024-08-06 10:53] LABS: Basophils # (A) 0.1 k/uL (0-0.2); Basophils % (A) 0 %; Eosinophils # (A) 0.1 k/uL (0-0.7); Eosinophils % (A) 1 %; HCT 51.4 % (39.0-53.0); HGB 16.3 gm/dL (13.0-17.5); Hypochromasia Moderate; Lymphocytes # (A) 1.6 k/uL (1.0-4.8); Lymphocytes % (A) 12 %; MCH 30.2 pg (25.0-35.0); MCHC 31.7 g/dL (31.0-37.0); MCV 95.3 fL (80.0-100.0); Mean Platelet Volume 8.3; Monocytes # (A) 0.9 k/uL (0-1.0); Monocytes % (A) 6 %; Neutrophils # (A) 10.9 k/uL (1.3-7.7); Neutrophils % (A) 80 %; Platelet Count 234 k/uL (150-450); RBC 5.39 m/uL (4.30-5.90); RDW 14.8 % (11.5-15.5); WBC 13.6 k/uL (3.8-10.6)
[2024-08-06] MEDS: METOPROLOL SUCCINATE (ER) 25 MG TAB.ER.24H PO STA (10:53)
[2024-08-06 11:06] LABS: Potassium 4.1 mmol/L (3.5-5.1)
[2024-08-06 11:07] LABS: African American GFR (CKD) 70 (>60 ml/min/1.73 sqM); Anion Gap 11 mmol/L; Blood Urea Nitrogen 36 mg/dL (9-20); Calcium 9.7 mg/dL (8.4-10.2); Carbon Dioxide 27 mmol/L (22-30); Chloride 101 mmol/L (98-107); Glucose 99 mg/dL (74-99); Magnesium 2.2 mg/dL (1.6-2.3); Non-African American GFR(CKD) 61 (>60 ml/min/1.73 sqM); Sodium 139 mmol/L (137-145)
--- NOTE | 2024-08-06 12:31 | P.PN ---
Subjective HISTORY OF PRESENT ILLNESS: This is a 68-year-old male with a past medical history significant for peripheral arterial disease and COPD. Patient does not follow with a accountant tax. We have been asked to see the patient in consultation for CHF. Patient examined at the bedside. Patient presented to the hospital with a chief complaint of increased lower extremity edema. Patient also reports having mild shortness of breath. He denies any chest pain or pressure. Denies any dizziness or lightheadedness. Patient denies any known cardiac history. Patient appears somewhat restless during examination and states he is eager to be discharged home. DIAGNOSTICS: - EKG reveals sinus tachycardia with nonspecific ST-T wave changes. T wave inve rsions inferiorly. - CTA: negative for pulmonary embolism. Large right pleural effusion. Small left effusion. Generalized anasarca. Coronary artery calcifications. - Laboratory data: WBC 14.4. Hemoglobin 16.3. Platelet count 239. D-dimer 1.52. Sodium 139. Potassium 4.9. BUN 25. Creatinine 1.15. Troponin 0.077. 0.098. 0.093. - Current home cardiac medications include none - No previous echocardiogram, stress test, or cardiac catheterization available in EMR for review 08/06/2024 Patient examined this morning at the bedside. Patient currently denies any chest pain or pressure. He reports improvement in his shortness of breath. He is still requiring supplemental oxygen. He remains on IV Lasix. 2D echo remains pending. Chest ultrasound reveals moderate right pleural effusion. Lower extremity arterial Doppler reveals moderate right and severe left peripheral vascular disease by MARIELY. PHYSICAL EXAM: VITAL SIGNS: Reviewed. GENERAL: Well-developed in no acute distress. HEENT: Head is normocephalic. Pupils are equal, round. Sclerae anicteric. Mucous membranes of the mouth are moist. Neck supple. No JVD or thyromegaly LUNGS: Respirations even and unlabored. Lungs with bibasilar crackles HEART: Mildly tachycardic. Regular rate and rhythm. S1 and S2 heard. ABDOMEN: Soft. Nondistended. Nontender. EXTREMITIES: Normal range of motion. No clubbing or cyanosis. Peripheral pulses intact-decreased in the legs. Bilateral lower extremity edema NEUROLOGIC: Awake and alert. Oriented x 3. ASSESSMENT: Shortness of breath Acute heart failure, type unknown, echo pending Elevated troponins, likely type II [place] secondary to oxygen supply and demand mismatch, cannot rule out underlying CAD Large right pleural effusion Small left pleural effusion Mildly elevated LFTs Elevated lactic acid Coronary artery calcifications per CTA History of PAD, moderate right and severe left PVD by MARIELY Obesity, BMI 33.5 History of COPD Nicotine dependence PLAN: 2D echo ordered. Await results. Continue current cardiac medications Increase metoprolol succinate to 50 mg daily tachycardia Increase losartan to 50 mg daily due to elevated blood pressures Add Farxiga 10 mg daily Continue IV Lasix 40 mg every 12 hours Daily weights, accurate intake and output, and monitoring of kidney function Recommend cardiac catheterization with Dr. Chacon when patient is medically stable, possibly Thursday if patient is agreeing to staying in the hospital as he is eager to be discharged home Further recommendations pending patient course Nurse practitioner note has been reviewed by physician. Signing provider agrees with the documented findings, assessment, and plan of care documented by MEDICAL OBSERVER as a scribe. Objective - Vital Signs Vital signs: Vital Signs Temp 98.2 F 08/06/24 10:52 Pulse 92 08/06/24 10:52 Resp 19 08/06/24 10:52 BP 143/97 08/06/24 10:52 Pulse Ox 97 08/06/24 10:52 FiO2 Intake & Output 08/05/24 08/06/24 08/06/24 18:59 06:59 18:59 Intake Total 360 788 Output Total 300 Balance -300 360 788 Weight 99.79 kg 99.8 kg Intake: IV 10 Invasive Line 1 10 Oral 360 778 Output: Urine 300 Other: Voiding Method Toilet Toilet # Voids 2 # Bowel Movements 1 - Labs CBC & Chem 7: 08/06/24 09:38 08/06/24 09:38 Labs: Abnormal Lab Results - Last 24 Hours (Table) 08/05/24 08/05/24 08/06/24 Range/Units 06:04 11:58 09:38 WBC (3.8-10.6) k/uL Neutrophils # (1.3-7.7) k/uL BUN 36 H (9-20) mg/dL Hemoglobin A1c 6.1 H (<=6.0) % HDL Cholesterol 25.30 L (40.00-60.00) mg/dL 08/06/24 Range/Units 09:38 WBC 13.6 H (3.8-10.6) k/uL Neutrophils # 10.9 H (1.3-7.7) k/uL BUN (9-20) mg/dL Hemoglobin A1c (<=6.0) % HDL Cholesterol (40.00-60.00) mg/dL
[2024-08-06] MEDS: LOSARTAN 25 MG TAB PO STA (13:21)
--- NOTE | 2024-08-06 15:07 | CA ---
Transthoracic Echo Report Name: Clement Barrera Age: 68 Gender: M : 1955 Exam Date: 08/06/2024 11:59 Exam Location: [facility] Ht (in): 68 Wt (lb): 220 Ordering Physician: Leif Rhoades MD Attending/Referring Phys: Screener Perfumer Sudha Oliva RDCS Procedure CPT: Indications: Heart failure Cardiac Hx: Technical Quality: Technically difficult study Contrast 1: Definity Total Dose (mL): 2 Contrast 2: Total Dose (mL): MEASUREMENTS (Male / Female) Normal Values 2D ECHO LV Diastolic Diameter PLAX 5.6 cm 4.2 - 5.9 / 3.9 - 5.3 cm LV Systolic Diameter PLAX 4.8 cm IVS Diastolic Thickness 1.5 cm 0.6 - 1.0 / 0.6 - 0.9 cm LVPW Diastolic Thickness 1.4 cm 0.6 - 1.0 / 0.6 - 0.9 cm LV Relative Wall Thickness 0.5 RV Internal Dim ED PLAX 3.8 cm LVOT Diameter 2.5 cm LA Systolic Diameter LX 4.8 cm 3.0 - 4.0 / 2.7 - 3.8 cm LV Diastolic Volume MOD BP 144.2 cm??? 67 - 155 / 56 - 104 cm??? LV Systolic Volume MOD BP 112.4 cm??? - 58 / 19 - 49 cm??? LV Ejection Fraction MOD BP 22.1 % >= 55 % LV Cardiac Index MOD BP 1588.5 cm???/min???m??? LV Diastolic Volume MOD 4C 130.4 cm??? LV Systolic Volume MOD 4C 101.9 cm??? LV Ejection Fraction MOD 4C 21.9 % LV Cardiac Index MOD 4C 1424.3 cm???/min???m??? LV Diastolic Length 4C 7.6 cm LV Systolic Length 4C 7.5 cm LV Diastolic Volume MOD 2C 167.4 cm??? LV Systolic Volume MOD 2C 122.5 cm??? LV Ejection Fraction MOD 2C 26.8 % LV Cardiac Index MOD 2C 2239.8 cm???/min???m??? LV Diastolic Length 2C 8.5 cm LV Systolic Length 2C 7.6 cm LA Volume 140.3 cm??? 18 - 58 / 22 - 52 cm??? LA Volume Index 63.1 cm???/m??? 16 - 28 cm???/m??? M-MODE Aortic Root Diameter MM 3.8 cm DOPPLER AV Peak Velocity 238.0 cm/s AV Peak Gradient 22.7 mmHg AV Mean Velocity 155.1 cm/s AV Mean Gradient 11.3 mmHg AV Velocity Time Integral 41.4 cm LVOT Peak Velocity 72.2 cm/s LVOT Peak Gradient 2.1 mmHg LVOT Velocity Time Integral 11.5 cm LVOT Stroke Volume 56.6 cm??? LVOT Stroke Volume Index 26.6 ml/m??? LVOT Cardiac Index 2828.4 cm???/min???m??? AV Area Cont Eq vti 1.4 cm??? AV Area Cont Eq pk 1.5 cm??? MV Area PHT 5.2 cm??? MV Deceleration Time 174.1 ms TR Peak Velocity 282.4 cm/s TR Peak Gradient 31.9 mmHg Right Ventricular Systolic Press 45.4 mmHg FINDINGS Left Ventricle Left ventricular ejection fraction is estimated at 20-25 %. Left ventricular cavity size normal. Moderately increased septal wall thickness. Severely increased left ventricular systolic volume. Severely decreased left ventricular ejection fraction. Right Ventricle Moderate right ventricular dilatation. Moderate pulmonary hypertension. Right Atrium No right atrial thrombus or mass seen. Left Atrium Moderately increased left atrial diameter. Severely increased left atrial volume. Moderately increased left atrial area. Mitral Valve Structurally normal mitral valve. No mitral stenosis, regurgitation or prolapse. Aortic Valve Trileaflet aortic valve. Aortic valve sclerosis. Mild aortic stenosis with a peak gradient of 23 mmHg and a mean gradient of 11 mmHg. Tricuspid Valve Structurally normal tricuspid valve. Mild tricuspid regurgitation. Pulmonic Valve Structurally normal pulmonic valve. Trace pulmonic regurgitation. Pericardium No pericardial effusion. Aorta Mild aortic dilatation at the level of the sinuses of valsalva 38 mm CONCLUSIONS Severe LV systolic dysfunction with an ejection fraction of 25% Moderate pulmonary hypertension Mild aortic stenosis Previewed by: Dr. Truman Morse MD (Electronically Signed) Final Date: 06 August 2024 15:06
--- NOTE | 2024-08-06 15:55 | P.CNPUL ---
History of Present Illness Consult date: 08/06/24 Requesting physician: Lupe Hooks Reason for consult: pleural effusion Chief complaint: Shortness of breath and fluid retention with bilateral lower extremity swel History of present illness: This is a 68-year-old white male admitted yesterday with mostly few days history of increased shortness of breath, increased swelling in his lower extremities/bipedal edema, he had no chest pain, no fever, no chills, no hemoptysis. Upon workup in the ER, patient was found to have moderate right- sided pleural effusion and small pleural effusion generalized anasarca coronary artery calcification, and no evidence of pulmonary embolism or pneumonia. Patient was admitted, and this consult was initiated. I reviewed the ultrasound of the chest, the marking on the chest has been removed for some reason patient has a 6.5 cm pocket/pleural effusion, however the patient is feeling significantly better with diuretics, he is breathing better, the swelling in his lower extremities is significantly improved, even the swelling in his abdominal cavity seems to be better according to the patient. Considering this, I see no plans to recommend immediate thoracentesis, patient is obviously responding to d iuretics, and will continue the sameCBC today is relatively normal electrolytes are normal BUN is 36 creatinine 1.22 Review of Systems CONSTITUTIONAL: Denies fever chills or weight loss patient has significant weight gain recently HEENT: Denies blurred vision, vision changes, or eye pain. Denies hemoptysis CARDIOVASCULAR: No chest pain but he does have significant fluid retention and buildup of edema in both of his lower extremities RESPIRATORY: Mild shortness of breath GASTROINTESTINAL: Denies abdominal pain. Denies nausea or vomiting. HEMATOLOGIC: Denies bleeding disorders. GENITOURINARY: No hematuria dysuria frequency urgency SKIN: Denies any rash Past Medical History Past Medical History: COPD, Hypertension, Respiratory Disorder Additional Past Medical History / Comment(s): PAD,PVD History of Any Multi-Drug Resistant Organisms: None Reported Past Surgical History: No Surgical Hx Reported, Orthopedic Surgery Additional Past Surgical History / Comment(s): pin right shoulder, gall stones Past Anesthesia/Blood Transfusion Reactions: No Reported Reaction Past Psychological History: No Psychological Hx Reported Smoking Status: Current every day smoker Past Alcohol Use History: Occasional Past Drug Use History: None Reported Medications and Allergies Home Medications Medication Instructions Recorded Confirmed Type Albuterol Inhaler [Ventolin Hfa 2 puff INHALATION RT-Q4H PRN 08/05/24 08/05/24 History Inhaler] Fluticasone/Umeclidin/Vilanter 1 puff INHALATION RT-DAILY 08/05/24 08/05/24 History [Dimitrylesaúl Ellipta 100-62.5-25] Ipratropium-Albuterol Nebulize 3 ml INHALATION RT-QID PRN 08/05/24 08/05/24 History [Duoneb 0.5 mg-3 mg/3 ml Soln] Allergies Allergy/AdvReac Type Severity Reaction Status Date / Time No Known Allergies Allergy Verified 08/05/24 07:47 Physical Exam Vitals: Vital Signs Temp Pulse Pulse Resp BP BP Pulse Ox 08/06/24 15:25 97.4 F L 62 19 128/81 98 08/06/24 13:21 92 19 08/06/24 10:52 98.2 F 92 19 143/97 97 08/06/24 08:11 103 H 19 08/06/24 08:10 98.3 F 103 H 19 170/82 96 08/06/24 04:00 97.9 F 103 H 20 130/88 95 08/06/24 02:00 20 08/06/24 00:34 98.6 F 60 20 125/80 98 08/05/24 21:00 22 08/05/24 20:51 98.5 F 100 21 139/92 95 08/05/24 20:00 97.5 F L 100 18 160/97 97 08/05/24 18:44 108 H 08/05/24 18:33 102 H Intake and Output 08/06/24 08/06/24 08/06/24 06:59 14:59 22:59 Intake Total 798 Output Total 400 Balance 398 Intake: IV 20 Invasive Line 1 20 Oral 778 Output: Urine 400 Other: Voiding Method Toilet Toilet Urinal # Voids 2 # Bowel Movements 1 Weight 99.8 kg GENERAL: Revealed a 68-year-old white male in no distress, On 3 L nasal cannula with O2 saturation of 98% HEENT: Atraumatic, normocephalic, PERRLA, EOMI, nonicteric no neck masses no JVD no stridor moist mucous membranes LUNGS: Diminished breath sounds at the right base with slight dullness, no crackles rhonchi or wheezes HEART: Normal S1-S2, no S3 Or gallop 2/6 systolic murmur throughout the precordium ABDOMEN: Soft nontender no MAG no rebound or guarding EXTREMITIES: 2+ bipedal edema NEUROLOGIC: Awake and alert. Oriented x 3. Psychiatric: Normal mood affect abnormality status examination Skin: No rash Results - Laboratory Findings CBC and BMP: 08/06/24 09:38 08/06/24 09:38 PT/INR, D-dimer PT 13.0 sec (10.0-12.5) H 08/04/24 21:28 INR 1.2 (<1.2) H 08/04/24 21: D-Dimer 1.52 mg/L FEU (<0.60) H 08/04/24 21:28 Abnormal lab findings: Abnormal Labs 08/04/24 08/04/24 08/04/24 21:28 21:28 21:28 WBC 14.4 H MCHC 30.9 L Neutrophils # 11.2 H PT 13.0 H INR 1.2 H D-Dimer 1.52 H Carbon Dioxide 20 L BUN 25 H Glucose 114 H Hemoglobin A1c Plasma Lactic Acid Francisco Calcium 10.3 H AST 66 H ALT 67 H Troponin I HDL Cholesterol 08/04/24 08/04/24 08/05/24 21:28 21:28 02:01 WBC MCHC Neutrophils # PT INR D-Dimer Carbon Dioxide BUN Glucose Hemoglobin A1c Plasma Lactic Acid Francisco 2.2 H* Calcium AST ALT Troponin I 0.077 H* 0.098 H* HDL Cholesterol 08/05/24 08/05/24 08/05/24 06:04 06:04 11:58 WBC MCHC Neutrophils # PT INR D-Dimer Carbon Dioxide BUN Glucose Hemoglobin A1c 6.1 H Plasma Lactic Acid Francisco Calcium AST ALT Troponin I 0.093 H* HDL Cholesterol 25.30 L 08/06/24 08/06/24 09:38 09:38 WBC 13.6 H MCHC Neutrophils # 10.9 H PT INR D-Dimer Carbon Dioxide BUN 36 H Glucose Hemoglobin A1c Plasma Lactic Acid Francisco Calcium AST ALT Troponin I HDL Cholesterol - Diagnostic Findings Chest x-ray: image reviewed CT scan - chest: image reviewed (As noted in HPI) Assessment and Plan Assessment: Impression: Acute on chronic systolic congestive heart failure ejection fraction of 25% Bilateral pleural effusions, secondary to above Anasarca secondary to above Moderate pulmonary hypertension History of underlying COPD severity of which is not clear at this point. History of mild aortic stenosis History of underlying coronary artery disease History of peripheral vessel occlusive disease Tobacco dependence syndrome Recommendation: Continue diuretics for now patient is on Lasix 40 mg IV push twice daily, obviously the patient is improving with diuresis, and will hold on thoracentesis for now. Continue cardiac medications as ordered by cardiology including metoprolol and losartan farxiga was added Continue to monitor and strictly I's and O's Continue to monitor daily weights Continue to monitor renal profile Cardiology is considering cardiac catheterization on this patient possibly Thursday No emergent need to perform thoracentesis, patient would likely improve with diuresis only. Resume his home bronchodilators for COPD Will continue to follow Time with Patient: Greater than 30
[2024-08-07 08:30] LABS: Basophils % (A) 0 %; Eosinophils # (A) 0.2 k/uL (0-0.7); Eosinophils % (A) 1 %; HCT 51.6 % (39.0-53.0); HGB 16.3 gm/dL (13.0-17.5); Hypochromasia Moderate; Lymphocytes # (A) 1.8 k/uL (1.0-4.8); Lymphocytes % (A) 12 %; MCH 30.3 pg (25.0-35.0); MCHC 31.6 g/dL (31.0-37.0); MCV 95.8 fL (80.0-100.0); Mean Platelet Volume 7.9; Monocytes # (A) 0.8 k/uL (0-1.0); Monocytes % (A) 6 %; Neutrophils # (A) 11.3 k/uL (1.3-7.7); Neutrophils % (A) 80 %; Platelet Count 216 k/uL (150-450); RBC 5.38 m/uL (4.30-5.90); RDW 14.8 % (11.5-15.5); WBC 14.2 k/uL (3.8-10.6)
[2024-08-07 08:43] LABS: African American GFR (CKD) 79 (>60 ml/min/1.73 sqM); Anion Gap 10 mmol/L; Blood Urea Nitrogen 34 mg/dL (9-20); Calcium 9.9 mg/dL (8.4-10.2); Carbon Dioxide 30 mmol/L (22-30); Chloride 101 mmol/L (98-107); Glucose 107 mg/dL (74-99); Magnesium 2.3 mg/dL (1.6-2.3); Non-African American GFR(CKD) 68 (>60 ml/min/1.73 sqM); Potassium 4.2 mmol/L (3.5-5.1); Sodium 141 mmol/L (137-145)
[2024-08-07] MEDS: LOSARTAN 50 MG TAB PO SCH (08:47)
[2024-08-07] MEDS: DAPAGLIFLOZIN PROPANEDIOL 10 MG TABLET PO SCH (08:47)
[2024-08-07] MEDS: METOPROLOL SUCCINATE (ER) 50 MG TAB.ER.24H PO SCH (08:47)
[2024-08-07] MEDS ORDERED: ALPRAZolam 0.25 MG TAB PO PRN (13:19)
[2024-08-07] MEDS ORDERED: ALPRAZolam 0.5 MG TAB PO PRN (13:19)
[2024-08-07] MEDS ORDERED: NITROGLYCERIN SL TABS 0.4 MG TAB SUBLINGUAL PRN (13:19)
--- NOTE | 2024-08-07 13:22 | P.PN ---
Subjective HISTORY OF PRESENT ILLNESS: This is a 68-year-old male with a past medical history significant for peripheral arterial disease and COPD. Patient does not follow with a education consultant. We have been asked to see the patient in consultation for CHF. Patient examined at the bedside. Patient presented to the hospital with a chief complaint of increased lower extremity edema. Patient also reports having mild shortness of breath. He denies any chest pain or pressure. Denies any dizziness or lightheadedness. Patient denies any known cardiac history. Patient appears somewhat restless during examination and states he is eager to be discharged home. DIAGNOSTICS: - EKG reveals sinus tachycardia with nonspecific ST-T wave changes. T wave inve rsions inferiorly. - CTA: negative for pulmonary embolism. Large right pleural effusion. Small left effusion. Generalized anasarca. Coronary artery calcifications. - Laboratory data: WBC 14.4. Hemoglobin 16.3. Platelet count 239. D-dimer 1.52. Sodium 139. Potassium 4.9. BUN 25. Creatinine 1.15. Troponin 0.077. 0.098. 0.093. - Current home cardiac medications include none - No previous echocardiogram, stress test, or cardiac catheterization available in EMR for review 08/06/2024 Patient examined this morning at the bedside. Patient currently denies any chest pain or pressure. He reports improvement in his shortness of breath. He is still requiring supplemental oxygen. He remains on IV Lasix. 2D echo remains pending. Chest ultrasound reveals moderate right pleural effusion. Lower extremity arterial Doppler reveals moderate right and severe left peripheral vascular disease by MARIELY. 08/07/2024 Patient examined this morning the bedside. Patient currently denies chest pain or pressure. He denies shortness of breath. However he remains on nasal cannula to maintain oxygen saturations greater than 92%. He remains on IV Lasix. Echocardiogram completed revealing ejection fraction 2025%, moderate pulm hypertension, and mild aortic stenosis PHYSICAL EXAM: VITAL SIGNS: Reviewed. GENERAL: Well-developed in no acute distress. HEENT: Head is normocephalic. Pupils are equal, round. Sclerae anicteric. Mucous membranes of the mouth are moist. Neck supple. No JVD or thyromegaly LUNGS: Respirations even and unlabored. Lungs diminished bilaterally HEART: Regular rate and rhythm. S1 and S2 heard. ABDOMEN: Soft. Nondistended. Nontender. EXTREMITIES: Normal range of motion. No clubbing or cyanosis. Peripheral pulses intact-decreased in the legs. Bilateral lower extremity edema NEUROLOGIC: Awake and alert. Oriented x 3. ASSESSMENT: Shortness of breath Acute heart failure with reduced EF, 20 to 25% New onset cardiomyopathy, ischemic versus nonischemic Elevated troponins, likely type II IN secondary to oxygen supply and demand mismatch, cannot rule out underlying CAD Large right pleural effusion Small left pleural effusion Mildly elevated LFTs Elevated lactic acid Coronary artery calcifications per CTA History of PAD, moderate right and severe left PVD by MARIELY Obesity, BMI 33.5 History of COPD Nicotine dependence PLAN: Continue current cardiac medications Continue IV Lasix 40 mg every 12 hours Daily weights, accurate intake and output, and monitoring of kidney function Add Aldactone 25 mg daily N.p.o. at midnight Patient to undergo cardiac catheterization tomorrow with Dr. Chacon Further recommendations pending patient course Nurse practitioner note has been reviewed by physician. Signing provider agrees with the documented findings, assessment, and plan of care documented by [employer] as a scribe. Objective - Vital Signs Vital signs: Vital Signs Temp 97.9 F 08/07/24 11:23 Pulse 84 08/07/24 11:23 Resp 19 08/07/24 11:23 BP 124/89 08/07/24 11:23 Pulse Ox 99 08/07/24 11:23 FiO2 Intake & Output 08/06/24 08/07/24 08/07/24 18:59 06:59 18:59 Intake Total 918 20 790 Output Total 400 1005 400 Balance 518 -985 390 Weight 100.2 kg Intake: IV 20 20 10 Invasive Line 1 20 20 10 Oral 898 780 Output: Urine 400 1005 400 Other: Voiding Method Toilet Toilet Toilet Urinal Urinal Urinal # Voids 2 # Bowel Movements 1 - Labs CBC & Chem 7: 08/07/24 07:49 08/07/24 07:49 Labs: Abnormal Lab Results - Last 24 Hours (Table) 08/07/24 08/07/24 Range/Units 07:49 07:49 WBC 14.2 H (3.8-10.6) k/uL Neutrophils # 11.3 H (1.3-7.7) k/uL BUN 34 H (9-20) mg/dL Glucose 107 H (74-99) mg/dL
--- NOTE | 2024-08-07 14:48 | P.PN ---
Subjective Progress Note Date: 08/07/24 Principal diagnosis: Acute on chronic systolic congestive heart failure and bilateral pleural effusions This is a 68-year-old white male admitted yesterday with mostly few days history of increased shortness of breath, increased swelling in his lower extremities/bipedal edema, he had no chest pain, no fever, no chills, no hemoptysis. Upon workup in the ER, patient was found to have moderate right- sided pleural effusion and small pleural effusion generalized anasarca coronary artery calcification, and no evidence of pulmonary embolism or pneumonia. Patient was admitted, and this consult was initiated. I reviewed the ultrasound of the chest, the marking on the chest has been removed for some reason patient has a 6.5 cm pocket/pleural effusion, however the patient is feeling significantly better with diuretics, he is breathing better, the swelling in his lower extremities is significantly improved, even the swelling in his abdominal cavity seems to be better according to the patient. Considering this, I see no plans to recommend immediate thoracentesis, patient is obviously responding to diuretics, and will continue the sameCBC today is relatively normal electrolytes are normal BUN is 36 creatinine 1.22 Patient was seen today on 08/07/2024, patient seems to be doing better today, breathing easier, denies any chest pain cough wheezing or shortness of breath. Patient is on nasal cannula, O2 saturation is 92%, remains on Lasix, his echocardiogram showed severe LV dysfunction with ejection fraction of 20 to 25% and there is evidence of moderate pulmonary hypertension. Ultrasound of the chest showed a 6.5 cm pocket however the patient is doing well clinically, improving to diuretics, I do not believe the patient will need thoracentesis. However if his pleural effusion persists or gets any worse, we could consider to address the issue of thoracentesis. At this point in time I do not see a need for thoracentesis considering the clinical improvement and considering this is a clear-cut presentation of congestive heart failure. WBC count is 14.2 hemoglobin 16.3 basic metabolic profile is normal renal profile is normal with BUN of 34 creatinine 1.11 Objective - Vital Signs Vital signs: Vital Signs Temp 97.9 F 08/07/24 11:23 Pulse 84 08/07/24 13:38 Resp 19 08/07/24 13:38 BP 124/89 08/07/24 11:23 Pulse Ox 99 08/07/24 11:23 FiO2 Intake & Output 12/28/24 12/29/24 12/29/24 18:59 06:59 18:59 Intake Total 763 20 8895 Output Total 400 1005 400 Balance 518 -985 640 Weight 100.2 kg Intake: IV 20 20 20 Invasive Line 1 20 20 20 Oral [id number] [id number] Output: Urine 400 1005 400 Other: Voiding Method Toilet Toilet Toilet Urinal Urinal Urinal # Voids 2 # Bowel Movements 1 - Exam GENERAL: Revealed a 68-year-old white male in no distress, On 3 L nasal cannula with O2 saturation of 99% HEENT: Atraumatic, normocephalic, PERRLA, EOMI, nonicteric no neck masses no JVD no stridor moist mucous membranes LUNGS: Diminished breath sounds at the right base with slight dullness, no crackles rhonchi or wheezes HEART: Normal S1-S2, no S3 Or gallop 2/6 systolic murmur throughout the precordium ABDOMEN: Soft nontender no MAG no rebound or guarding EXTREMITIES: 1+ bipedal edema NEUROLOGIC: Awake and alert. Oriented x 3. Psychiatric: Normal mood affect abnormality status examination Skin: No rash - Labs CBC & Chem 7: 08/07/24 07:49 08/07/24 07:49 Labs: Abnormal Lab Results - Last 24 Hours (Table) 08/07/24 08/07/24 Range/Units 07:49 07:49 WBC 14.2 H (3.8-10.6) k/uL Neutrophils # 11.3 H (1.3-7.7) k/uL BUN 34 H (9-20) mg/dL Glucose 107 H (74-99) mg/dL Assessment and Plan Assessment: Impression: Acute on chronic systolic congestive heart failure ejection fraction of 20 to 25% Bilateral pleural effusions, secondary to above Anasarca secondary to above Moderate pulmonary hypertension History of underlying COPD severity of which is not clear at this point. History of mild aortic stenosis History of underlying coronary artery disease History of peripheral vessel occlusive disease Tobacco dependence syndrome Recommendation: Continue diuretics for now patient is on Lasix 40 mg IV push twice daily, and A ldactone 25 mg daily improving hence I have no plans to recommend thoracentesis at this point Continue metoprolol and losartan farxiga Continue to monitor and strictly I's and O's Continue to monitor daily weights Continue to monitor renal profile Cardiology is considering cardiac catheterization on this patient possibly Thursday No emergent need to perform thoracentesis, may not need wound considering the clinical improvement Continue bronchodilators for COPD Will continue to follow Time with Patient: Less than 30
[2024-08-07] MEDS: SPIRONOLACTONE 25 MG TAB PO SCH (16:22)
[2024-08-07] MEDS: SODIUM CHLORIDE 0.9% 1,000 ML in EMPTY BAG 1 BAG IV SCH (23:52)
[2024-08-08] MEDS: ASPIRIN 325 MG TAB PO ONE (05:39)
[2024-08-08] MEDS: ATORVASTATIN 80 MG TAB PO ONE (05:39)
[2024-08-08] MEDS ORDERED: HEPARIN SODIUM,PORCINE (1 ML) 2,500 UNIT in SODIUM CHLORIDE 0.9% 250 ML IRRIGATION PRN (07:00)
[2024-08-08] MEDS ORDERED: HEPARIN SODIUM,PORCINE 10,000 UNIT in SODIUM CHLORIDE 0.9% 1,000 ML IRRIGATION PRN (07:00)
--- NOTE | 2024-08-08 09:06 | XR ---
EXAMINATION TYPE: XR chest 1V portable DATE OF EXAM: 08/08/2024 7:23 AM COMPARISON: 08/04/2024 CLINICAL INDICATION: Male, 68 years old with history of Pleural effusion, TECHNIQUE: XR chest 1V portable view(s) obtained. FINDINGS: The heart size is mildly prominent. The pulmonary vasculature is mildly prominent. There is increasing diffuse increased lung markings present bilaterally. Small right pleural effusion is present IMPRESSION: 1. Clinical correlation for congestive heart failure. Findings are slightly worsened over the interva l. Follow-up is recommended. [facility], , 08/08/2024 9:04 AM
--- NOTE | 2024-08-08 09:07 | PN ---
PROGRESS NOTE DATE OF SERVICE: 08/06/2024 SUBJECTIVE: A 68-year-old gentleman, admitted with shortness of breath, possibly combination of COPD and CHF, acute exacerbation, also had elevated troponin also. The patient had a chest ultrasound, showed some right pleural effusion, multiple consults following the patient closely. PAST MEDICAL HISTORY: Reviewed. REVIEW OF SYSTEMS: A 14-point review of systems is negative except as mentioned earlier. CURRENT MEDICATIONS: Reviewed. PHYSICAL EXAMINATION: VITAL SIGNS: Pulse is 92, blood pressure 140/90, respirations 19. HEENT: Conjunctivae normal. NECK: No JVD. CARDIOVASCULAR: S1, S2. RESPIRATIONS: Breath sounds diminished at the bases. Scattered rhonchi and crackles. ABDOMEN: Soft. NERVOUS SYSTEM: Nonfocal. LABORATORY DATA: Reviewed. ASSESSMENT: 1. Shortness of breath, possibly multifactorial. 2. Congestive heart failure, acute exacerbation. 3. Chronic obstructive pulmonary disease, acute exacerbation. 4. Right pleural effusion. 5. Troponin elevated up to 0.098, possible acute top-KB-fyplnoh elevation myocardial infarction. 6. Hypertension. 7. Multiple complex medical issues. RECOMMENDATIONS: To continue current management and continue symptomatic treatment at this time. Continue with cautious diuretics. Repeat labs. I would also recommend closely follow with Pulmonary and continue with bronchodilators. Repeat labs. Guarded prognosis. Further recommendations to follow. MMODL / IJN: [id number] /
[2024-08-08 09:20] LABS: Basophils # (A) 0.1 k/uL (0-0.2); Basophils % (A) 0 %; Eosinophils # (A) 0.2 k/uL (0-0.7); Eosinophils % (A) 2 %; HCT 50.5 % (39.0-53.0); HGB 15.9 gm/dL (13.0-17.5); Hypochromasia Slight; Lymphocytes # (A) 1.6 k/uL (1.0-4.8); Lymphocytes % (A) 12 %; MCH 29.9 pg (25.0-35.0); MCHC 31.4 g/dL (31.0-37.0); MCV 95.3 fL (80.0-100.0); Mean Platelet Volume 8.1; Monocytes # (A) 0.9 k/uL (0-1.0); Monocytes % (A) 7 %; Neutrophils # (A) 10.7 k/uL (1.3-7.7); Neutrophils % (A) 79 %; Platelet Count 215 k/uL (150-450); WBC 13.6 k/uL (3.8-10.6)
[2024-08-08 09:35] LABS: African American GFR (CKD) 73 (>60 ml/min/1.73 sqM); Anion Gap 8 mmol/L; Blood Urea Nitrogen 30 mg/dL (9-20); Calcium 9.8 mg/dL (8.4-10.2); Carbon Dioxide 30 mmol/L (22-30); Chloride 101 mmol/L (98-107); Glucose 105 mg/dL (74-99); Magnesium 2.2 mg/dL (1.6-2.3); Non-African American GFR(CKD) 63 (>60 ml/min/1.73 sqM); Potassium 3.9 mmol/L (3.5-5.1); Sodium 139 mmol/L (137-145)
[2024-08-08 09:39] VITALS: RESP 18
[2024-08-08] MEDS: IV FLUID CONTINUATION 900 ML IV ONE (11:49)
[2024-08-08] MEDS: HEPARIN SODIUM,PORCINE (1 ML) 2,500 UNIT in SODIUM CHLORIDE 0.9% 250 ML IRRIGATION ONE (11:50)
[2024-08-08] MEDS: HEPARIN SODIUM,PORCINE 10,000 UNIT in SODIUM CHLORIDE 0.9% 1,000 ML IRRIGATION ONE (11:50)
[2024-08-08] MEDS: MIDAZOLAM 2 MG/2 ML VIAL IVP ONE (12:03)
[2024-08-08] MEDS: fentaNYL (PF) 50 MCG/ML 2 ML AMP IVP ONE (12:06)
[2024-08-08] MEDS: LIDOCAINE 1% INJ 10MG/ML (20 ML MDV) SQ ONE (12:06)
[2024-08-08] MEDS: VERAPAMIL SYRINGE (5 MG/10 ML) INTRAARTER ONE (12:07)
[2024-08-08] MEDS: IOPAMIDOL-370 100ML BTL INJ ONE (12:24)
--- NOTE | 2024-08-08 12:29 | PN ---
PROGRESS NOTE DATE OF SERVICE: 08/07/2024 SUBJECTIVE: This is a 68-year-old gentleman admitted with CHF acute exacerbation, closely monitored. The patient also had a right pleural effusion. The chest ultrasound showed 6.5 cm fluid. 2D echo showed ejection fraction of 25%. The patient is on Lasix. Recommend diuresis per Pulmonary. EXAM: VITAL SIGNS: Pulse is 84. Blood pressure 130/80, respiration 19. CHEST: Clear. CARDIOVASCULAR: S1, S2 . ABDOMEN: Soft. NERVOUS SYSTEM: Nonfocal. LABORATORY DATA: Noted. ASSESSMENT: 1. Congestive heart failure acute exacerbation with acute on chronic systolic dysfunction, EF 25%. 2. Right pleural effusion. 3. Troponin elevated up to 0.098. Possible acute avt-NP-pitaczr-elevation myocardial infarction. 4. Hypertension. 5. Multiple complex medical issues. RECOMMENDATION: To continue current management and continue symptomatic treatment. Recommend repeat chest x-ray today and continue to monitor closely. Follow with Pulmonary, Cardiology. Guarded prognosis. Further recommendations to follow. MMODL / IJN: [id number] / PIPE
[2024-08-08] MEDS ORDERED: RX INFO: IV CONTRAST WAS GIVEN 1 EACH MISC MISCELLANE PRN (12:45)
--- NOTE | 2024-08-08 12:57 | P.CARDCATH ---
Date of Procedure: 08/08/24 Description of Procedure: DIAGNOSTIC CORONARY ANGIOGRAPHY and LEFT HEART CATH REPORT PROCEDURES PERFORMED: Left heart catheterization Selective coronary angiography Moderate conscious sedation 19 mins [Ultrasound assisted] Right radial access INDICATION: NSTEMI, cardiomyopathy, PAD, smoking Patient presented with acute dyspnea on exertion. He was found to have severe cardiomyopathy with a EF of 20 to 25% along with evidence of elevated troponin. He also has risk factors including peripheral arterial disease, smoking and hypertension. For this he was scheduled for a heart catheterization procedure. CONSENT: I have explained the procedural steps of above-mentioned procedures in layman's terms to the patient. I discussed the risks (including but not limited to stroke, emergent vascular or cardiac surgery or ), benefits and alternative therapies for the above-mentioned procedure. I discussed the risks of sedation/analgesia and blood product administration (if indicated). The patient has indicated understanding and acceptance of these risks. Conscious Sedation: Patient's ECG, heart rate, blood pressure, pulse oximetry were monitored throughout the duration of procedure under my direct supervision. 1 mg Versed and 50 mcg Fentanyl were used for induction of moderate conscious se dation. Total duration of moderate concious sedation 19 minutes. PROCEDURE: After explaining the risks, benefits and alternatives of the above mentioned procedures in detail to the patient, informed consent was obtained. Patient was taken to the catheterization lab, prepped and draped in usual sterile fashion using universal precuations. Ultrasound was used to identify the radial artery. 1% lidocaine was infiltrated over the right radial artery. A 6-Uzbek sheath was placed and secured in the right radial artery using modified Seldinger technique. The sheath was flushed and 5 mg verapamil was administered intra-arterially. J tipped wire was advanced under fluoroscopic guidance. Once the wire tip reached aortic root 6000 units of IV heparin was given. Over the wire JR4 diagnostic catheter was advanced. The wire in place the catheter was manipulated to cross the aortic valve and entered into LV under fluoroscopy guidance. The wire was removed and the catheter was flushed. LV pressures were obtained and pullback was performed under fluoroscopy. Catheter was manipulated to selectively engage the right coronary ostium. Right coronary angiography was performed in different angiographic projections. The JR4 diagnostic catheter was exchanged for a JL 3.5 diagnostic catheter over the J-wire. The wire was removed, catheter was flushed and manipulated under fluoroscopy to selectively engaged the left coronary ostium. Left coronary angioplasty was performed in different angiographic projections. Catheter was removed over the wire. Radial sheath was flushed. The right radial sheath was removed and a TR band was placed with excellent patent hemostasis was achieved. The patient tolerated the procedure well. Patient was transported back to the post catheterization holding area in stable condition. Angiographic images were reviewed in detail. HEMODYNAMICS: Aortic Pressure: 130/80 mmHg. LV pressure: 130/10 mmHg. LVEDP 25 mmHg. There was no significant gradient across the aortic valve. SELECTIVE CORONARY ARTERIOGRAPHY: LEFT MAIN: The left main is short and large caliber vessel. It bifurcates into the LAD and circumflex. Ostial and proximal left main has 30% stenosis. LEFT ANTERIOR DESCENDING CORONARY ARTERY: LAD is a large-caliber vessel reaches up to the apex. Proximal LAD has ectasia. Junction of proximal and mid LAD has 50 to 60% luminal narrowing. Mid LAD and distal LAD has mild diffuse disease. Mid LAD gives rise to 2 diagonal branches. Diagonal 1 is moderate caliber and has 40% diffuse disease. Diagonal 2 is a small caliber and has 60 to 70% ostial disease. LEFT CIRCUMFLEX CORONARY ARTERY: It is nondominant vessel. Left circumflex is a moderate caliber vessel. Proximal LCx has mild disease. It gives rise to a "high OM 1" which has mild calcific diffuse disease. Mid LCx has moderate 50 to 60% diffuse calcific disease. RIGHT CORONARY ARTERY: Dominant vessel. Moderate caliber. Proximal RCA has mild luminal irregularities. Mid RCA is 100% occluded and appears to be a chronic total occlusion. There are no major collaterals noticed. IMPRESSION: 100% LEAN SENSEI of mid RCA 50% diffuse LAD disease 50 to 60% diffuse LCx disease 30% proximal left main disease Elevated LVEDP PLAN: 75 cc/h of normal saline for 5 hours Aspirin 81 mg, Xarelto 2.5 mg twice daily for PAD and CAD Entresto 49/51 mg twice daily, Farxiga 10 mg daily, Aldactone 25 mg daily Metoprolol succinate 50 mg daily Bumex 1 mg twice daily for 5 days, after 5 days Bumex 1 mg daily Consider potential discharge in next 24 to 48 hours Further plan LifeVest if patient is agreeable. Recommend outpatient further PAD workup. Reevaluate LVEF in 3 months, if no recovery may consider revascularization and primary prevention with ICD. Complete abstinence from smoking, alcohol, drugs Tight blood pressure control with goal 120 over 70 mmHg, heart rate goal less than 70 mmHg Recommend cardiac rehab on discharge Performing Physician Berny Chacon MD, FACC, RPVI
--- NOTE | 2024-08-08 15:37 | P.PN ---
Subjective Progress Note Date: 08/08/24 Principal diagnosis: Congestive heart failure. This is a 68-year-old white male admitted yesterday with mostly few days history of increased shortness of breath, increased swelling in his lower extremities/bipedal edema, he had no chest pain, no fever, no chills, no hemoptysis. Upon workup in the ER, patient was found to have moderate right- sided pleural effusion and small pleural effusion generalized anasarca coronary artery calcification, and no evidence of pulmonary embolism or pneumonia. Patient was admitted, and this consult was initiated. I reviewed the ultrasound of the chest, the marking on the chest has been removed for some reason patient has a 6.5 cm pocket/pleural effusion, however the patient is feeling significantly better with diuretics, he is breathing better, the swelling in his lower extremities is significantly improved, even the swelling in his abdominal cavity seems to be better according to the patient. Considering this, I see no plans to recommend immediate thoracentesis, patient is obviously responding to diuretics, and will continue the sameCBC today is relatively normal electrolytes are normal BUN is 36 creatinine 1.22 Patient was seen today on 08/07/2024, patient seems to be doing better today, breathing easier, denies any chest pain cough wheezing or shortness of breath. Patient is on nasal cannula, O2 saturation is 92%, remains on Lasix, his echocardiogram showed severe LV dysfunction with ejection fraction of 20 to 25% and there is evidence of moderate pulmonary hypertension. Ultrasound of the chest showed a 6.5 cm pocket however the patient is doing well clinically, improving to diuretics, I do not believe the patient will need thoracentesis. However if his pleural effusion persists or gets any worse, we could consider to address the issue of thoracentesis. At this point in time I do not see a need for thoracentesis considering the clinical improvement and considering this is a clear-cut presentation of congestive heart failure. WBC count is 14.2 hemoglobin 16.3 basic metabolic profile is normal renal profile is normal with BUN of 34 creatinine 1.11 Progress note dated August 08, 2024. 68-year-old male seen today in room 369. The patient was admitted a few days back with congestive heart failure. Currently, he is on 3 L of oxygen. Saturations are 98%. His ejection fraction is 20 to 25%. Currently, the patient is without any complaints. Current labs include a white count 13.6, hemoglobin 15.9, hematocrit 50.5, and a normal platelet count of 215,000. Sodium 139, potassium 3.9, chlorides 101, CO2 30, anion gap normal, BUN 30, creatinine 1.18. Glucose is 105. Calcium 9.8, magnesium 2.2. Chest x-ray is consistent with CHF. Objective - Vital Signs Vital signs: Vital Signs Temp 96.8 F L 08/07/24 21:30 Pulse 95 08/08/24 08:00 Resp 18 08/08/24 08:00 BP 127/81 08/08/24 08:00 Pulse Ox 98 08/08/24 08:00 FiO2 Intake & Output 08/07/24 08/08/24 08/08/24 18:59 06:59 18:59 Intake Total 1280 20 110 Output Total 850 950 875 Balance 430 -160 -765 Weight 102 kg Intake: IV 20 20 110 Invasive Line 1 20 20 10 Oral 1260 Output: Urine 850 950 875 Other: Voiding Method Toilet Toilet Urinal Urinal # Voids 1 - Exam No acute distress, oriented 3. No respiratory distress. HEENT examination is grossly unremarkable. Mucous membranes are moist. No oral lesions. Neck supple. Full range of motion. No adenopathy thyromegaly or neck vein distention. Cardiovascular examination reveals regular rhythm rate. S1-S2 normal. No S3 or S4. Systolic murmur noted. Lungs reveal mild bibasilar crackles. No wheezes or rhonchi. Breath sounds are equal bilaterally. Abdomen soft bowel sounds are heard. No masses or tenderness. Extremities are intact. Mild edema present. No cyanosis or clubbing. Skin is without rash or lesion. Neurologic examination is brief but nonfocal. - Labs CBC & Chem 7: 08/08/24 08:29 08/08/24 08:29 Labs: Abnormal Lab Results - Last 24 Hours (Table) 08/08/24 08/08/24 Range/Units 08: 08:29 WBC 13.6 H (3.8-10.6) k/uL Neutrophils # 10.7 H (1.3-7.7) k/uL BUN 30 H (9-20) mg/dL Glucose 105 H (74-99) mg/dL Assessment and Plan Assessment: Acute on chronic systolic CHF, with an ejection fraction of 20 to 25%. Bilateral pleural effusions, secondary to CHF. Anasarca, secondary to CHF. Moderate pulmonary hypertension. History of COPD, severity not known. History of mild aortic stenosis. History of CAD. History of peripheral vessel occlusive disease. Tobacco dependence syndrome. Plan: Plan dated August 08, 2024. The patient is seen in room 369. The patient is on 3 L of oxygen. Saturations are 98%. Ejection fraction is 20 to 25%. Labs, x-rays, and medications are reviewed. The patient continues on appropriate medications including Lasix, Aldactone, beta-vishnu, losartan, and Farxiga. The patient is having daily weights, and accurate I's and O's. We will continue to follow make recommendations where appropriate. Labs, x-rays, and medications are reviewed. Time with Patient: Less than 30
[2024-08-08] MEDS: BUMETANIDE 1 MG TAB PO SCH (16:57)
--- NOTE | 2024-08-09 02:23 | PN ---
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 No chest pain. No palpitations. No fever. The 2D echo showed ejection fraction 20% to 25%. LifeVest was recommended by Cardiology. OBJECTIVE: VITAL SIGNS: Pulse is 95, blood pressure 127/84, respirations 18. CHEST: Clear to auscultation. CARDIOVASCULAR: S1, S2. ABDOMEN: Soft. NERVOUS SYSTEM: Nonfocal. LABORATORY DATA: WBC 13.6. ASSESSMENT: 1. Congestive heart failure acute exacerbation with acute on chronic systolic dysfunction, ejection fraction 25%, possibly cardiomyopathy. 2. Status post cardiac catheterization, diffuse coronary artery disease. 3. Right pleural effusion. 4. Troponin elevated up to 0.098. Possible acute [id number]-elevation myocardial infarction. 5. Hypertension. 6. Multiple complex medical issues. RECOMMENDATIONS AND DISCUSSION: I recommend to continue current medications and continue symptomatic treatment. Closely follow with Cardiology. Repeat labs. Otherwise, possible LifeVest. Further recommendations to follow. MMODL / IJN: [id number] /
[2024-08-09] MEDS: SODIUM CHLORIDE 0.9% 1,000 ML IV SCH (05:25)
[2024-08-09 07:22] LABS: Basophils # (A) 0.1 k/uL (0-0.2); Basophils % (A) 1 %; Eosinophils # (A) 0.3 k/uL (0-0.7); Eosinophils % (A) 3 %; HCT 50.1 % (39.0-53.0); HGB 15.5 gm/dL (13.0-17.5); Hypochromasia Moderate; Lymphocytes # (A) 1.9 k/uL (1.0-4.8); Lymphocytes % (A) 15 %; MCH 29.9 pg (25.0-35.0); MCV 96.5 fL (80.0-100.0); Mean Platelet Volume 8.1; Monocytes # (A) 0.7 k/uL (0-1.0); Monocytes % (A) 6 %; Neutrophils # (A) 9.2 k/uL (1.3-7.7); Neutrophils % (A) 74 %; Platelet Count 177 k/uL (150-450); RBC 5.18 m/uL (4.30-5.90); RDW 14.9 % (11.5-15.5); WBC 12.3 k/uL (3.8-10.6)
[2024-08-09 07:35] LABS: African American GFR (CKD) 83 (>60 ml/min/1.73 sqM); Anion Gap 12 mmol/L; Blood Urea Nitrogen 32 mg/dL (9-20); Calcium 9.4 mg/dL (8.4-10.2); Carbon Dioxide 27 mmol/L (22-30); Chloride 101 mmol/L (98-107); Glucose 106 mg/dL (74-99); Non-African American GFR(CKD) 72 (>60 ml/min/1.73 sqM); Potassium 3.8 mmol/L (3.5-5.1); Sodium 140 mmol/L (137-145)
[2024-08-09] MEDS: RIVAROXABAN 2.5 MG TABLET PO SCH (10:03)
[2024-08-09] MEDS: SACUBITRIL/VALSARTAN 24 MG-26 MG TABLET PO SCH (10:03)
[2024-08-09 10:37] VITALS: TEMP 98
[2024-08-09 11:44] VITALS: BMI 32.4
--- NOTE | 2024-08-09 11:55 | P.PN ---
Subjective Progress Note Date: 08/09/24 This is a 68-year-old male with a past medical history significant for peripheral arterial disease and COPD. Patient does not follow with a equity trader. We have been asked to see the patient in consultation for CHF. Patient examined at the bedside. Patient presented to the hospital with a chief complaint of increased lower extremity edema. Patient also reports having mild shortness of breath. He denies any chest pain or pressure. Denies any dizziness or lightheadedness. Patient denies any known cardiac history. Patient appears somewhat restless during examination and states he is eager to be discharged home. DIAGNOSTICS: - EKG reveals sinus tachycardia with nonspecific ST-T wave changes. T wave inversions inferiorly. - CTA: negative for pulmonary embolism. Large right pleural effusion. Small left effusion. Generalized anasarca. Coronary artery calcifications. - Laboratory data: WBC 14.4. Hemoglobin 16.3. Platelet count 239. D-dimer 1.52. Sodium 139. Potassium 4.9. BUN 25. Creatinine 1.15. Troponin 0.077. 0.098. 0.093. - Current home cardiac medications include none - No previous echocardiogram, stress test, or cardiac catheterization available in EMR for review 08/06/2024 Chest ultrasound reveals moderate right pleural effusion. Lower extremity arterial Doppler reveals moderate right and severe left peripheral vascular disease by MARIELY. 08/07/2024 Echocardiogram completed revealing ejection fraction 20-25%, moderate pulm hypertension, and mild aortic stenosis 08/09/2024 Patient was seen and examined sitting up in bed. He is overall feeling fairly well. His breathing is stable. He has had no chest discomfort. He underwent cardiac catheterization yesterday by Dr. Chacon that revealed 100% ECONOMIC CONSULTANT of mid RCA, 50% diffuse LAD disease, 50 to 60% diffuse left circumflex disease, 30% proximal left main disease and elevated LVEDP. He has been recommended medical management, LifeVest and reevaluation of the LVEF about 3 months. He is currently on aspirin 81 mg daily, atorvastatin 40 mg p.o. qhs, Bumex, Farxiga 10 mg p.o. daily, metoprolol succinate 50 mg p.o. daily, Entresto 49/21 mg BID and Xarelto 2.5 mg p.o. twice daily. Vital signs and renal function are stable. PHYSICAL EXAM: VITAL SIGNS: Reviewed. GENERAL: Well-developed in no acute distress. HEENT: Head is normocephalic. Pupils are equal, round. Sclerae anicteric. Mucous membranes of the mouth are moist. Neck supple. No JVD or thyromegaly LUNGS: Respirations even and unlabored. Lungs diminished bilaterally HEART: Regular rate and rhythm. S1 and S2 heard. ABDOMEN: Soft. Nondistended. Nontender. EXTREMITIES: Normal range of motion. No clubbing or cyanosis. Peripheral pulses intact-decreased in the legs. Bilateral lower extremity edema. Right radial puncture site clean dry and intact without hematoma or ecchymosis NEUROLOGIC: Awake and alert. Oriented x 3. ASSESSMENT: Shortness of breath Acute heart failure with reduced EF, 20 to 25% New onset cardiomyopathy, ischemic CAD with ECONOMIC CONSULTANT of the RCA, 50% diffuse LAD disease, 50 to 60% diffuse left circumflex disease and 30% proximal left main disease Large right pleural effusion Small left pleural effusion Mildly elevated LFTs Elevated lactic acid Coronary artery calcifications per CTA History of PAD, moderate right and severe left PVD by MARIELY Obesity, BMI 33.5 History of COPD Nicotine dependence PLAN: Medications were reviewed we will continue the same. Will order the patient a LifeVest. He will follow-up with Dr. Chacon in the office From our standpoint patient is stable for discharge home. [employer] TR[employer] DRIVER note has been reviewed, I agree with a documented findings and plan of care. Patient was seen and examined. Objective - Vital Signs Vital signs: Vital Signs Temp 98.0 F 08/09/24 08:00 Pulse 83 08/09/24 08:53 Resp 18 08/09/24 08:00 BP 132/74 08/09/24 08:00 Pulse Ox 98 08/09/24 08:00 FiO2 Intake & Output 08/08/24 08/09/24 08/09/24 18:59 06:59 18:59 Intake Total 470 237 360 Output Total 875 750 Balance -405 -513 360 Weight 96.9 kg 96.9 kg Intake: IV 120 Invasive Line 1 20 Oral 350 237 360 Output: Urine 875 750 Other: Voiding Method Toilet Urinal # Voids 1 - Labs CBC & Chem 7: 08/09/24 06:41 08/09/24 06:41 Labs: Abnormal Lab Results - Last 24 Hours (Table) 08/09/24 08/09/24 Range/Units 06:41 06:41 WBC 12.3 H (3.8-10.6) k/uL Neutrophils # 9.2 H (1.3-7.7) k/uL BUN 32 H (9-20) mg/dL Glucose 106 H (74-99) mg/dL
--- NOTE | 2024-08-09 15:04 | P.PN ---
Subjective Progress Note Date: 08/09/24 Principal diagnosis: Congestive heart failure. This is a 68-year-old white male admitted yesterday with mostly few days history of increased shortness of breath, increased swelling in his lower extremities/bipedal edema, he had no chest pain, no fever, no chills, no hemoptysis. Upon workup in the ER, patient was found to have moderate right- sided pleural effusion and small pleural effusion generalized anasarca coronary artery calcification, and no evidence of pulmonary embolism or pneumonia. Patient was admitted, and this consult was initiated. I reviewed the ultrasound of the chest, the marking on the chest has been removed for some reason patient has a 6.5 cm pocket/pleural effusion, however the patient is feeling significantly better with diuretics, he is breathing better, the swelling in his lower extremities is significantly improved, even the swelling in his abdominal cavity seems to be better according to the patient. Considering this, I see no plans to recommend immediate thoracentesis, patient is obviously responding to diuretics, and will continue the sameCBC today is relatively normal electrolytes are normal BUN is 36 creatinine 1.22 Patient was seen today on 08/07/2024, patient seems to be doing better today, breathing easier, denies any chest pain cough wheezing or shortness of breath. Patient is on nasal cannula, O2 saturation is 92%, remains on Lasix, his echocardiogram showed severe LV dysfunction with ejection fraction of 20 to 25% and there is evidence of moderate pulmonary hypertension. Ultrasound of the chest showed a 6.5 cm pocket however the patient is doing well clinically, improving to diuretics, I do not believe the patient will need thoracentesis. However if his pleural effusion persists or gets any worse, we could consider to address the issue of thoracentesis. At this point in time I do not see a need for thoracentesis considering the clinical improvement and considering this is a clear-cut presentation of congestive heart failure. WBC count is 14.2 hemoglobin 16.3 basic metabolic profile is normal renal profile is normal with BUN of 34 creatinine 1.11 Progress note dated August 08, 2024. 68-year-old male seen today in room 369. The patient was admitted a few days back with congestive heart failure. Currently, he is on 3 L of oxygen. Saturations are 98%. His ejection fraction is 20 to 25%. Currently, the patient is without any complaints. Current labs include a white count 13.6, hemoglobin 15.9, hematocrit 50.5, and a normal platelet count of 215,000. Sodium 139, potassium 3.9, chlorides 101, CO2 30, anion gap normal, BUN 30, creatinine 1.18. Glucose is 105. Calcium 9.8, magnesium 2.2. Chest x-ray is consistent with CHF. Progress note dated August 09, 2024. 68-year-old male seen today in room 369. The patient is on room air. He is not receiving any IV fluids. The patient states that he is hoping to be discharged home later today. He was waiting for his life vest. He has severe cardiomyopathy with an ejection fraction of between 20 to 25%. Current labs include a white count 12.3, hemoglobin 15.5, hematocrit 50.1, and a platelet count of 177,000. Sodium 140, potassium 3.8, chloride 101, CO2 27, BUN 32, creatinine 1.07. Glucose is 106. Calcium is 9.4. Objective - Vital Signs Vital signs: Vital Signs Temp 98.0 F 08/09/24 08:00 Pulse 83 08/09/24 12:23 Resp 18 08/09/24 08:00 BP 132/74 08/09/24 08:00 Pulse Ox 98 08/09/24 08:00 FiO2 Intake & Output 08/08/24 08/09/24 08/09/24 18:59 06:59 18:59 Intake Total 470 237 720 Output Total 875 750 Balance -405 -513 720 Weight 96.9 kg 96.9 kg Intake: IV 120 Invasive Line 1 20 Oral 350 237 720 Output: Urine 875 750 Other: Voiding Method Toilet Urinal # Voids 1 - Exam No acute distress, oriented 3. No respiratory distress. HEENT examination is grossly unremarkable. Mucous membranes are moist. No oral lesions. Neck supple. Full range of motion. No adenopathy thyromegaly or neck vein distention. Cardiovascular examination reveals regular rhythm rate. S1-S2 normal. No S3 or S4. Systolic murmur noted. Lungs reveal mild bibasilar crackles. No wheezes or rhonchi. Breath sounds are equal bilaterally. Abdomen soft bowel sounds are heard. No masses or tenderness. Extremities are intact. Mild edema present. No cyanosis or clubbing. Skin is without rash or lesion. Neurologic examination is brief but nonfocal. - Labs CBC & Chem 7: 08/09/24 06:41 08/09/24 06:41 Labs: Abnormal Lab Results - Last 24 Hours (Table) 08/09/24 08/09/24 Range/Units 06:41 06:41 WBC 12.3 H (3.8-10.6) k/uL Neutrophils # 9.2 H (1.3-7.7) k/uL BUN 32 H (9-20) mg/dL Glucose 106 H (74-99) mg/dL Assessment and Plan Assessment: Acute on chronic systolic CHF, with an ejection fraction of 20 to 25%. Bilateral pleural effusions, secondary to CHF. Anasarca, secondary to CHF. Moderate pulmonary hypertension. History of COPD, severity not known. History of mild aortic stenosis. History of CAD. History of peripheral vessel occlusive disease. Tobacco dependence syndrome. Plan: Plan dated August 08, 2024. The patient is seen in room 369. The patient is on 3 L of oxygen. Saturations are 98%. Ejection fraction is 20 to 25%. Labs, x-rays, and medications are reviewed. The patient continues on appropriate medications including Lasix, Aldactone, beta-vishnu, losartan, and Farxiga. The patient is having daily weights, and accurate I's and O's. We will continue to follow make recommendations where appropriate. Labs, x-rays, and medications are reviewed. Plan dated August 09, 2024. The patient is seen again in room 369. He is currently on room air. He is not receiving any IV fluids. Labs, x-rays, and medications are reviewed. The patient is hoping to be discharged. He is waiting for his LifeVest. He has severe cardiomyopathy. Labs, x-rays, and all medications have been reviewed. The patient's overall prognosis remains guarded. Clinically, he is stable. From the pulmonary standpoint, he could be considered for possible discharge. Time with Patient: Less than 30
[2024-08-09 17:58] VITALS: BP 133/81; PULSE 87
--- NOTE | 2024-08-10 15:21 | P.EN ---
i called the pt and he said the [facility] pharmacy is closed , i asked to come to the hospital and we will provide him with a paper prescription or come to emergency room but declined and said he has most of these medications like aspirin , xarelto and bumex and bp pressure pills, also he said he got the life vest and he is wearing it now
[2024-08-14] MEDS ORDERED: BUMETANIDE 1 MG TAB PO SCH (09:00)
--- NOTE | 2024-08-17 20:15 | P.DS ---
Providers Date of admission: 08/05/24 01:53 Attending physician: Lupe Hooks Consults: 08/05/24 01:50 Consult Physician Routine Consulting Provider: Berny Chacon Consult Reason/Comments: New CHF Do you want consulting provider notified?: Yes 08/05/24 14:02 Consult Physician Routine Consulting Provider: Giancarlo Alanis Reason/Comments: copd Do you want consulting provider notified?: Yes Primary care physician: Stated None Hospital Course: Diagnoses: Coronary artery disease s/p cardiac cath:100% stenosis of the mid RCA, 50% disease of the LAD and 50 to 60% of the left circumflex artery. Acute CHF, systolic with ejection fraction 20 to 25% Bilateral pleural effusion secondary to heart failure with anasarca COPD with no significant exacerbation upon discharge Hypertension Hyperlipidemia Obesity with BMI of 32.5 Hospital course: This is a pleasant 68 years old male with past medical history of multiple medical problems. Presents because of shortness of breath and leg swelling History evaluated by leaf conditioner and pulmonary service. He was found to have acute CHF with ejection fraction 20 to 25% and bilateral pleural effusion and anasarca also diagnosed with COPD. He was treated with initially with heparin drip and normal saline and he underwent cardiac cath on 08/08 by cardiology team showing 100% stenosis of the mid RCA, 50% disease of the LAD and 50 to 60% of the left circumflex artery.. Patient was treated with Bumex 1 mg twice daily, metoprolol and Entresto also placed an baby aspirin and small dose of Xarelto. Patient showed interval improvement and on the day of discharge she denies chest pain or dyspnea Patient was cleared for discharge by cardiology team and pulmonary team Problems and management plan were discussed with the patient and he verbalized understanding and acceptance Patient was found stable and can be discharged home in guarded prognosis however he needs follow-up as an outpatient. Patient was instructed to follow up with PCP within one week and patient agrees Physical exam Gen: patient is a AAOx3, no distress CVS: S1-S2, RRR, no murmur Lungs: B/L CTA, no wheezing Abdomen: soft, no distention, no tenderness, positive bowel sounds Extremity: no leg edema or induration Time spent more than 35 minutes Plan - Discharge Summary New Discharge Prescriptions: New Bumetanide [BUMEX] 1 mg PO DAILY #30 tab Dapagliflozin Propanediol [Farxiga] 10 mg PO DAILY #30 tab Atorvastatin [Lipitor] 40 mg PO HS #30 tab Spironolactone [Aldactone] 25 mg PO DAILY #30 tab Aspirin 81 mg PO DAILY #30 tab Sacubitril/Valsartan [Entresto 24 mg-26 mg Tablet] 2 each PO BID #60 tab Nitroglycerin Sl Tabs [Nitrostat] 0.4 mg SUBLINGUAL Q5M PRN #10 tab PRN Reason: Chest Pain Metoprolol Succinate (ER) [Toprol XL] 50 mg PO DAILY #30 tab Rivaroxaban [Xarelto] 2.5 mg PO BID #60 tab Continue Ipratropium-Albuterol Nebulize [Duoneb 0.5 mg-3 mg/3 ml Soln] 3 ml INHALATION RT-QID PRN PRN Reason: Shortness Of Breath Fluticasone/Umeclidin/Vilanter [Trelegy Ellipta 100-62.5-25] 1 puff INHALATION RT-DAILY Albuterol Inhaler [Ventolin Hfa Inhaler] 2 puff INHALATION RT-Q4H PRN PRN Reason: Shortness Of Breath Discharge Medication List Albuterol Inhaler [Ventolin Hfa Inhaler] 2 puff INHALATION RT-Q4H PRN 08/05/24 [History] Fluticasone/Umeclidin/Vilanter [Trelegy Ellipta 100-62.5-25] 1 puff INHALATION RT-DAILY 08/05/24 [History] Ipratropium-Albuterol Nebulize [Duoneb 0.5 mg-3 mg/3 ml Soln] 3 ml INHALATION RT-QID PRN 08/05/24 [History] Aspirin 81 mg PO DAILY #30 tab 08/09/24 [Rx] Atorvastatin [Lipitor] 40 mg PO HS #30 tab 08/09/24 [Rx] Bumetanide [BUMEX] 1 mg PO DAILY #30 tab 08/09/24 [Rx] Dapagliflozin Propanediol [Farxiga] 10 mg PO DAILY #30 tab 08/09/24 [Rx] Metoprolol Succinate (ER) [Toprol XL] 50 mg PO DAILY #30 tab 08/09/24 [Rx] Nitroglycerin Sl Tabs [Nitrostat] 0.4 mg SUBLINGUAL Q5M PRN #10 tab 08/09/24 [R x] Rivaroxaban [Xarelto] 2.5 mg PO BID #60 tab 08/09/24 [Rx] Sacubitril/Valsartan [Entresto 24 mg-26 mg Tablet] 2 each PO BID #60 tab 08/09/24 [Rx] Spironolactone [Aldactone] 25 mg PO DAILY #30 tab 08/09/24 [Rx] Follow up Appointment(s)/Referral(s): None,Stated [Primary Care Provider] - 1-2 days Berny Chacon MD [Medical Doctor] - 2 Weeks Giancarlo Alanis MD [STAFF PHYSICIAN] - 2 Weeks Activity/Diet/Wound Care/Special Instructions: Discharge Home with Self-Care pending delivery of life-vest on 08/09/24 [employer] Heart healthy diet Activity is restricted till you see your doctor Discharge Disposition: HOME SELF-CARE
== END 2024-08-09 21:32 | disposition home or self-care (01) | DRG 280 ==
LOC: EC 20:45 → 3SCARD 08-05 01:53
PROVIDERS: ADMIT Hospitalist; ATTEND Hospitalist
PROC: B2111ZZ Fluoroscopy of Multiple Coronary Arteries using Low Osmolar Contrast (ICD-10-PCS; 2024-08-08)
PROC: 4A023N7 Measurement of Cardiac Sampling and Pressure, Left Heart, Percutaneous Approach (ICD-10-PCS; principal; 2024-08-08 11:00)
DX: I11.0 Hypertensive heart disease with heart failure (principal); I50.23 Acute on chronic systolic (congestive) heart failure; I21.A1 Myocardial infarction type 2; J44.1 Chronic obstructive pulmonary disease with (acute) exacerbation; E87.20 Acidosis, unspecified; F17.200 Nicotine dependence, unspecified, uncomplicated; R00.0 Tachycardia, unspecified; I25.10 Atherosclerotic heart disease of native coronary artery without angina pectoris; Z68.33 Body mass index [BMI] 33.0-33.9, adult; E66.9 Obesity, unspecified; I27.20 Pulmonary hypertension, unspecified; I25.5 Ischemic cardiomyopathy; Z79.899 Other long term (current) drug therapy; Z98.61 Coronary angioplasty status
CPT/HCPCS: 36415; 71045; 71046; 71275; 76604; 80048; 80053; 80061; 83036; 83605; 83735; 83880; 84484; 85025; 85379; 85610; 85730; 87636; 93005; 93306; 93458; 93923; 94640; 94760; 96374; 96376; 99291

== ENCOUNTER → 2024-08-22 | Outpatient (CLI) | payer MEDICARE, OTHER ==
[2024-08-22 17:40] LABS: HCT 58.9 % (39.6-50.0); HGB 17.7 g/dL (13.0-17.0); MCH 28.6 pg (27.0-32.0); MCHC 30.1 g/dL (32.0-37.0); MCV 95.2 FL (80.0-97.0); Mean Platelet Volume 11.4 FL (9.5-12.2); NRBC Per 100 WBC 0 X 10*3/uL (0.00-0.01); Platelet Count 293 X 10*3/uL (140-440); RBC 6.19 X 10*6/uL (4.40-5.60); RDW 15.6 % (11.5-14.5); WBC 14.59 X 10*3/uL (4.50-10.00)
[2024-08-22 18:05] LABS: ALT 42 U/L (10-49); AST 27 U/L (14-35); Albumin 4.5 g/dL (3.8-4.9); Albumin/Globulin Ratio 1.61 Ratio (1.60-3.17); Alkaline Phosphatase 109 U/L (41-126); BUN/Creat Ratio 14.58 Ratio (12.00-20.00); Blood Urea Nitrogen 17.5 mg/dL (9.0-27.0); Calcium 10.6 mg/dL (8.7-10.3); Carbon Dioxide 25.6 mmol/L (21.6-31.8); Chloride 101 mmol/L (96-109); Chol/HDL Ratio 3.49 Ratio; Globulin 2.8 g/dL (1.6-3.3); Glucose 105 mg/dL (70-110); Potassium 5.1 mmol/L (3.5-5.5); Sodium 140 mmol/L (135-145); Total Bilirubin 0.5 mg/dL (0.3-1.2); Total Protein 7.3 g/dL (6.2-8.2); VLDL Calculation 13.54 mg/dL (5.00-40.00)
[2024-08-22 22:52] LABS: NT-Pro-B-Type Natriuretic Pept 1440 pg/mL (0-125)
== END | disposition home or self-care (01) ==
LOC: LABWHC1 10:25
PROVIDERS: ATTEND Student in an Organized Health Care Education/Training Program
DX: D72.9 Disorder of white blood cells, unspecified (principal); R79.89 Other specified abnormal findings of blood chemistry; E11.9 Type 2 diabetes mellitus without complications; I50.9 Heart failure, unspecified; E78.5 Hyperlipidemia, unspecified; E03.9 Hypothyroidism, unspecified; Z13.6 Encounter for screening for cardiovascular disorders
CPT/HCPCS: 36415; 80053; 80061; 83036; 83880; 84443; 85027

== ENCOUNTER → 2024-12-14 | Outpatient (CLI) | payer MEDICARE, OTHER ==
[2024-12-14 18:54] LABS: HCT 50.3 % (39.6-50.0); HGB 16.3 g/dL (13.0-17.0); MCH 30.5 pg (27.0-32.0); MCHC 32.4 g/dL (32.0-37.0); Mean Platelet Volume 10.9 FL (9.5-12.2); NRBC Per 100 WBC 0 X 10*3/uL (0.00-0.01); Platelet Count 292 X 10*3/uL (140-440); RBC 5.35 X 10*6/uL (4.40-5.60); RDW 14.9 % (11.5-14.5); WBC 16.71 X 10*3/uL (4.50-10.00)
[2024-12-14 19:30] LABS: NT-Pro-B-Type Natriuretic Pept 523 pg/mL (0-125)
[2024-12-14 21:28] LABS: ALT 32 U/L (10-49); AST 27 U/L (14-35); Albumin 4.7 g/dL (3.8-4.9); Albumin/Globulin Ratio 1.88 Ratio (1.60-3.17); Alkaline Phosphatase 75 U/L (41-126); BUN/Creat Ratio 20.17 Ratio (12.00-20.00); Blood Urea Nitrogen 24.2 mg/dL (9.0-27.0); Calcium 10.2 mg/dL (8.7-10.3); Carbon Dioxide 21.4 mmol/L (21.6-31.8); Chloride 98 mmol/L (96-109); Globulin 2.5 g/dL (1.6-3.3); Glucose 102 mg/dL (70-110); Potassium 4.8 mmol/L (3.5-5.5); Sodium 138 mmol/L (135-145); Total Bilirubin 0.4 mg/dL (0.3-1.2); Total Protein 7.2 g/dL (6.2-8.2)
== END | disposition home or self-care (01) ==
LOC: LABWHC1 14:02
PROVIDERS: ATTEND Student in an Organized Health Care Education/Training Program
DX: I50.9 Heart failure, unspecified (principal); E11.9 Type 2 diabetes mellitus without complications; E78.5 Hyperlipidemia, unspecified; E03.9 Hypothyroidism, unspecified; D72.9 Disorder of white blood cells, unspecified; R79.89 Other specified abnormal findings of blood chemistry
CPT/HCPCS: 36415; 80053; 83036; 83880; 84443; 85027